=== PATIENT | male | born 1965 | race Hispanic/Latino ===

== ENCOUNTER 2020-04-11 11:51 | Emergency (ER) | payer OTHER ==
[~2020-04-11] VITALS: Ht 172.7 cm; Wt 98.4 kg
--- OUTSIDE RECORDS SUMMARY | 2020-04-11 11:56 | XMS REPORT | Summary of Care ---
Author Author [facility] Organization [facility] Address Unknown Phone Unavailable Encounter HQ Encntr_alias(FIN) [phone] Date(s): 07/20/18 - 07/21/18 [facility] [address] [place] [address]- [phone] Vital Signs No data available for this section Problem List Condition Effective Dates Status Health Status Informan t Anxiety(Confirmed) Active Arthritis(Confirmed) Active Diabetes(Confirmed) Active High blood Active pressure(Confirmed) Insomnia(Confirmed) Active Allergies, Adverse Reactions, Alerts No Known Medication Allergies Medications No data available for this section Results No data available for this section Immunizations No data available for this section Procedures No data available for this section Social History No data available for this section Assessment and Plan No data available for this section
--- OUTSIDE RECORDS SUMMARY | 2020-04-11 11:56 | XMS REPORT | Clinical Summary ---
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
--- OUTSIDE RECORDS SUMMARY | 2020-04-11 11:56 | XMS REPORT | Summary of Care ---
Author Author [facility] Organization [facility] Address Unknown Phone Unavailable Encounter HQ Hiltonr_anuel(FIN) [phone] Date(s): 07/21/18 - 09/04/18 [facility] [address] [place] [address]- [phone] Attending Physician: Krystal Garcia NP Referring Physician: Krystal Garcia NP Vital Signs No data available for this [...]
--- OUTSIDE RECORDS SUMMARY | 2020-04-11 11:56 | XMS REPORT | Summary of Care ---
Author Author [facility] Neurosurgery [facility] Organization [facility] Neurosurgery [facility] Address Unknown Phone Unavailable Encounter HQ Encntr_aliviviana(FIN) [phone] Date(s): 05/27/18 - 05/27/18 [facility] Neurosurgery [facility] [address], [address] [place], [place] [address] [phone] Attending Physician: Brian Blevins MD Referring Physician: Kay Hearn MD Vital Signs No data available for this [...]
--- OUTSIDE RECORDS SUMMARY | 2020-04-11 11:56 | XMS REPORT | Summary of Care ---
Author Author [facility] Neurosurgery [facility] Organization [facility] Address Unknown Phone Unavailable Encounter HQ Encntr_alias(FIN) [phone] Date(s): 07/15/18 - 07/16/18 [facility] Neurosurgery [facility] [address] [place] [address]- [phone] Vital Signs No data available for this [...]
--- OUTSIDE RECORDS SUMMARY | 2020-04-11 11:56 | XMS REPORT | Summary of Care ---
Author Author [facility]surgery [facility] Organization [facility] Address Unknown Phone Unavailable Encounter HQ Encntr_alias(FIN) [phone] Date(s): 07/22/18 - 07/23/18 [facility] Neurosurgery [facility] [address] [place] [address]- [phone] Vital Signs No data available for this [...]
--- OUTSIDE RECORDS SUMMARY | 2020-04-11 11:56 | XMS REPORT | Summary of Care ---
Author Author [facility] Neurosurgery [facility] Organization [facility] Neurosurgery [facility] Address Unknown Phone Unavailable Encounter HQ Hiltonr_anuel(FIN) [phone] Date(s): 04/30/18 - 05/01/18 [facility] Neurosurgery [facility] [address], [address] [place], [place] [address] [phone] Vital Signs No data available for this section Problem List No data available for this section Allergies, Adverse Reactions, Alerts No data available for this section Medications No data available for this section Results No data available for this section Immunizations No data available for this section Procedures No data available for this section Social History No data available for this section Assessment and Plan No data available for this section
--- OUTSIDE RECORDS SUMMARY | 2020-04-11 11:56 | XMS REPORT | Summary of Care ---
Author Author [facility] Neurosurgery [facility] Organization [facility] Neurosurgery [facility] Address Unknown Phone Unavailable Encounter HQ Encntr_anuel(FIN) [phone] Date(s): 07/13/18 - 07/14/18 [facility] Neurosurgery [facility] [address] [facility] [address], [address] [place], [place] [address] [phone] Vital Signs No data available for this [...]
--- OUTSIDE RECORDS SUMMARY | 2020-04-11 11:56 | XMS REPORT | Summary of Care ---
Author Author [facility] Neurosurgery [facility] Organization [facility] Neurosurgery [facility] Address Unknown Phone Unavailable Encounter HQ Encntr_alias(FIN) [phone] Date(s): 07/13/18 - 07/14/18 [facility] Neurosurgery [facility] [address] [place] [address]- [phone] Vital Signs No data available for this [...]
--- OUTSIDE RECORDS SUMMARY | 2020-04-11 11:56 | XMS REPORT | Summary of Care ---
Author Author [facility]surgery [facility] Organization [facility] Neuro[facility] Address Unknown Phone Unavailable Encounter HQ Hiltonr_anuel(FIN) [phone] Date(s): 05/25/18 - 05/26/18 [facility] Neurosurgery [facility] [address], [address] [place], [place] [address] [phone] Vital Signs No data available for this [...]
--- OUTSIDE RECORDS SUMMARY | 2020-04-11 11:56 | XMS REPORT | Summary of Care ---
Author Author [facility] Neurosurgery [facility] Organization [facility] Neurosurgery [facility] Address Unknown Phone Unavailable Encounter HQ Encntr_alias(FIN) [phone] Date(s): 07/22/18 - 07/23/18 [facility] Neurosurgery [facility] [address] [place] [address]- [phone] Vital Signs No data available for this [...]
--- OUTSIDE RECORDS SUMMARY | 2020-04-11 11:56 | XMS REPORT | Summary of Care ---
Author Author [facility] Neurosurgery [facility] Organization [facility] Neurosurgery [facility] Address Unknown Phone Unavailable Encounter HQ Encntr_alias(FIN) [phone] Date(s): 07/15/18 - 07/16/18 [facility] Neurosurgery [facility] [address] [place] [address]- [phone] Vital Signs No data available for this [...]
--- OUTSIDE RECORDS SUMMARY | 2020-04-11 11:56 | XMS REPORT | Summary of Care ---
Author Author [facility] Organization [facility] Address Unknown Phone Unavailable Encounter HQ Encntr_aliviviana(FIN) [phone] Date(s): 08/04/17 - 08/04/17 [facility] [address] [place] [address]- Discharge Disposition: Home or Self Care Attending Physician: Kendrick Cheung MD Vital Signs No data available for [...]
--- OUTSIDE RECORDS SUMMARY | 2020-04-11 11:56 | XMS REPORT | Summary of Care ---
Author Author [facility] Neurosurgery [facility] Organization [facility] Neurosurgery [facility] Address Unknown Phone Unavailable Encounter HQ Encntr_anuel(FIN) [phone] Date(s): 05/25/18 - 05/26/18 [facility] Neurosurgery [facility] [address], [address] [place], [place] [address] [phone] Vital Signs No data available for this [...]
--- OUTSIDE RECORDS SUMMARY | 2020-04-11 11:56 | XMS REPORT | Continuity of Care Document ---
Author Author [facility] [employer] Address Unknown Phone Unavailable Care Team Providers Care Child Life Assistant Name Role Phone [facility] Unavailable Un available Problems Problem Status Onset Date Classification Date Reported Comments Source XRAY Active 08/04/2017 [facility] Anxiety (finding) Active Problem 03/24/2019 [facility] Arthritis (disorder) Active Problem 03/24/2019 [facility] Diabetes mellitus (disorder) A ctive Problem [facility] Hypertensive disorder, systemic arterial (disorder) Active Problem 03/24/2019 [facility] Insomnia (disorder) Active Problem 03/24/2019 [facility] Medications Medication Details Route Status Patient Instructions Ordering Provider Order Date Source Trazodone Hydrochloride 50 MG Oral Tablet 50 mg = 1 tab, PO, Bedtime, # 30 tab, 1 Refill(s) Active 06/26/2018 [facility] Metformin hydrochloride 500 MG Oral Tablet 500 mg = 1 tab, PO, Daily, take with a meal, # 30 tab, 1 Refill(s) Active 06/26/2018 [facility] meloxicam 15 mg oral tablet 15 mg = 1 tab, PO, Daily, 0 Refill(s) Active 06/26/2018 [facility] lisinopril 30 mg oral tablet 3 0 mg = 1 tab, PO, Daily, # 30 tab, 0 Refill(s) Active 06/26/2018 [facility] Acetaminophen 325 MG / Hydrocodone Marci trate 7.5 MG Oral Tablet [[place] 7.5/325] 1 tab, PO, Q6H, 0 Refill(s) Active 06/26/2018 [facility] DULoxetine 30 mg oral delayed release capsule 60 mg = 2 cap, PO, Daily, # 60 cap, 0 Refill(s) Active 06/26/2018 [facility] Allergies, Adverse Reactions, Alerts Substance Category Reaction Severity Reaction type Status Date Reported Comments Source No Known Medication Allergies Assertion Drug aller gy [facility] Immunizations No Data Provided for This Section Results No Data Provided for This Section Pathology Reports No Data Provided for This Section Diagnostic Reports Report Value Date Source Knee 4+ views bilat DX Study: Bilateral knees, 4 views, with weightbearing Clinical Indication: -Chronic bilateral knee pain Comparison: None FINDINGS: Right knee: There is minimal narrowing of the medial compartment of the joint space without hypertrophic changes. The patellofemoral articulation is normal. No joint effusion is noted. Left knee: The joint space is maintained. No hypertrophic changes are noted. Patellofemoral articulation is normal. No joint effusion is noted. IMPRESSION: Minimal right osteoarthritis. SL: [facility] 08/04/2017 [facility] Spine lumbar 2 or 3 views DX S tudy: Lumbar spine, 3 views Clinical Indication: - M54.5 Low back pain; Comparison: None FINDINGS: AP and lateral images demonstrate normal vertebral alignment. No compression fracture is evident. There are small marginal osteophytes at all levels. There is slight narrowing L3-L4 and L5-S1 intervertebral disc spaces. Sacroiliac joints are not remarkable. IMPRESSION: Spondylosis as described. SL: [facility] 08/04/2017 [facility] Spine cervical 2 or 3 view DX Study: Cervical spine, 3 views Clinical Indication: -Chronic neck pain Comparison: None FINDINGS: AP, lateral and odontoid images demonstrate normal vertebral alignment. No fracture is evident. Intervertebral disc spaces are maintained. There are small marginal osteophytes at C6-C7. Prevertebral soft tissues are normal. IMPRESSION: Minimal spondylosis. [facility]04/2017 [facility] Consultation Notes No Data Provided for This Section Discharge Summaries No Data Provided for This Section History and Physicals No Data Provided for This Section Vital Signs No Data Provided for This Section Encounters Location Location Details Encounter Type Encounter Number Reason For Visit Attending Provider ADM Date DC Date Status Source [facility] Outpatient [id number] Kendrick Cheung 08/04/2017 08/05/2017 [facility] Phone Message [id number] 04/23/2018 04/25/2018 [facility] Phone Message [id number] 04/30/2018 05/02/2018 [facility] Phone Message [id number] 05/25/2018 05/27/2018 [facility] Outpatient [id number] BRIAN VILLAREALH 05/27/2018 Active [facility] [id number] Brian [facility] 05/27/2018 05/27/2018 [facility] [id number] BRIAN [facility] 06/23/2018 Active [facility] Ángel [facility] [id number] Brian Felicity 06/23/2018 06/24/2018 [facility] Phone Message [id number] 07/02/2018 07/04/2018 [facility] Phone Message [id number] 07/13/2018 07/15/2018 [facility] Phone Message [id number] 07/15/2018 07/17/2018 [facility] Phone Message [id number] 07/15/2018 07/17/2018 [facility] Phone Message [id number] 07/20/2018 07/22/[address] [facility] [address] [facility] PreRe [id number] Krystal Garcia 07/21/2018 09/04/2018 [facility] Phone Message [id number] 07/22/2018 07/24/2018 [facility] Phone Message [id number] 07/22/2018 07/24/2018 [facility] Procedures No Data Provided for This Section Assessment and Plan No Data Provided for This Section Plan of Care No Data Provided for This Section Social History Social History Date Source No data available for this section 09/04/2018 [facility] No data available for this section 07/24/2018 [facility] Family History No Data Provided for This Section Advance Directives No Data Provided for This Section Functional Status No Data Provided for This Section
--- OUTSIDE RECORDS SUMMARY | 2020-04-11 11:56 | XMS REPORT | Summary of Care ---
Author Author [facility] Organization [facility] Address Unknown Phone Unavailable Encounter HQ Xiomara(FIN) [phone] Date(s): 06/23/18 - 06/23/18 [facility] [address] [place] [address] [phone] Discharge Disposition: Home or Self Care Attending Physician: Brian Blevins MD Referring Physician: Kay Hearn MD Vital Signs No data available for this section Problem List Condition Effective Dates Status Health Status Informan t Anxiety(Confirmed) Active Arthritis(Confirmed) Active Diabetes(Confirmed) Active High blood Active pressure(Confirmed) Insomnia(Confirmed) Active Allergies, Adverse Reactions, Alerts No Known Medication Allergies Medications DULoxetine 30 mg oral delayed release capsule 60 mg = 2 cap, PO, Daily, # 60 cap, 0 Refill(s) Start Date: 06/26/18 Status: Ordered lisinopril 30 mg oral tablet 30 mg = 1 tab, PO, Daily, # 30 tab, 0 Refill(s) Start Date: 06/26/18 Status: Ordered meloxicam 15 mg oral tablet 15 mg = 1 tab, PO, Daily, 0 Refill(s) Start Date: 06/26/18 Status: Ordered metFORMIN 500 mg oral tablet 500 mg = 1 tab, PO, Daily, take with a meal, # 30 tab, 1 Refill(s) Start Date: 06/26/18 Status: Ordered [place] 7.5/325 oral tablet 1 tab, PO, Q6H, 0 Refill(s) Start Date: 06/26/18 Status: Ordered trazodone 50 mg oral tablet 50 mg = 1 tab, PO, Bedtime, # 30 tab, 1 Refill(s) Start Date: 06/26/18 Status: Ordered Results No data available for this section Immunizations No data available for this section Procedures No data available for this section Social History No data available for this section Assessment and Plan No data available for this section
[2020-04-11] MEDS ORDERED: PAXIL20 MG PO (12:25)
[2020-04-11] MEDS ORDERED: GABAPENTIN300 MG PO (12:25)
[2020-04-11] MEDS ORDERED: METFORMIN HCL500 M2 PO (12:25)
[2020-04-11] MEDS ORDERED: ATORVASTATIN CA40 MG PO (12:26)
[2020-04-11] MEDS ORDERED: LISINOPRIL10 MG PO (12:26)
[2020-04-11] MEDS ORDERED: SODIUM CHLORIDE 0.9% 1000ML 1,000 ML IV STA (12:36)
[2020-04-11] MEDS ORDERED: ONDANSETRON HCL INJ 2MG/ML 2ML 2 MG/ML VIAL IV NR (12:45)
[2020-04-11] MEDS ORDERED: KETOROLAC TROMETHAMINE 30 MG/ML VIAL IV NR (12:45)
[2020-04-11] MEDS ORDERED: PANTOPRAZOLE 40 MG 10ML VIAL IV NR (12:45)
--- NOTE | 2020-04-11 12:52 | NUR ---
PATIENT TO ROOM 9
[2020-04-11] MEDS ORDERED: ONDANSETRON HCL INJ 2MG/ML 2ML 2 MG/ML VIAL ONE (12:53)
[2020-04-11] MEDS ORDERED: PANTOPRAZOLE 40 MG 10ML VIAL ONE (12:53)
[2020-04-11] MEDS ORDERED: DIATRIZOATE MEGL/DIATRIZOA SOD 30 ML BTL PO ONE (12:54)
[2020-04-11 13:14] LABS: BASOPHILS % 0.3 % (0.0-1.0); EOSINOPHILS # (AUTO) 0.1 (0.0-0.4); EOSINOPHILS % 1.8 % (0.0-6.0); HEMATOCRIT 41.1 % (38.2-49.6); HEMOGLOBIN 13.7 g/dL (14.0-18.0); LYMPHOCYTES # (AUTO) 1.9 (1.0-3.2); LYMPHOCYTES % 24.5 % (18.0-39.1); MEAN CORPUSCULAR HEMOGLOBIN 28.1 pg (28-32); MEAN CORPUSCULAR HGB CONC 33.3 g/dL (31-35); MEAN CORPUSCULAR VOLUME 84.2 fL (81-99); MONOCYTES # (AUTO) 0.5 (0.2-0.8); NEUTROPHILS % 65.9 % (38.7-80.0); PLATELET COUNT 293 x10e3/uL (140-360); RED BLOOD COUNT 4.88 x10e6/uL (4.3-5.7); RED CELL DISTRIBUTION WIDTH 12.8 % (11.7-14.4)
[2020-04-11 13:27] LABS: BILIRUBIN,URINE NEGATIVE (NEGATIVE); CLARITY,URINE CLEAR (CLEAR); COLOR,URINE YELLOW (YELLOW); KETONES,URINE NEGATIVE (NEGATIVE); LEUKOCYTE ESTERASE ,URINE NEGATIVE (NEGATIVE); NITRITE,URINE NEGATIVE (NEGATIVE); PROTEIN,URINE DIPSTICK NEGATIVE (NEGATIVE); URINE UROBILINOGEN 0.2 mg/dL (0.2 - 1)
[2020-04-11 13:30] LABS: PARTIAL THROMBOPLASTIN TIME 34.3 seconds (23.8-35.5)
[2020-04-11 13:35] LABS: INR 0.85; PROTHROMBIN TIME 12.1 seconds (11.9-14.5)
[2020-04-11 13:36] LABS: ALANINE AMINOTRANSFERASE 59 IU/L (0-55); ALBUMIN/GLOBULIN RATIO 1.3 (0.8-2.0); ALKALINE PHOSPHATASE 130 IU/L (40-150); ANION GAP 13.7 mmol/L (8-16); BLOOD UREA NITROGEN 11 mg/dL (7-26); BUN/CREATININE RATIO 13 (6-25); CALCIUM 9.5 mg/dL (8.4-10.2); CARBON DIOXIDE 23 mmol/L (22-29); CHLORIDE 106 mmol/L (98-107); CREATINE KINASE 75 IU/L (30-200); CREATININE, SERUM 0.88 mg/dL (0.72-1.25); EST GLOMERULAR FILTRATION RATE > 60 ML/MIN (60-); GLUCOSE 156 mg/dL (74-118); LIPASE 20 U/L (8-78); POTASSIUM 3.7 mmol/L (3.5-5.1); SODIUM 139 mmol/L (136-145)
[2020-04-11 13:38] LABS: BACTERIA,URINE FEW /HPF; EPITHELIAL CELLS,URINE RARE /LPF; MUCUS,URINE MANY (RARE); RBC,URINE 0-5 /HPF (0-5); WBC,URINE (MAN) 0-5 /HPF (0-5)
--- NOTE | 2020-04-11 13:40 | Emergency Department Note ---
History of Present Illnes History of Present Illness Chief Complaint: Abdominal Complaints History of Present Illness This is a 54 year old male .abd pain Chief Complaint Comment HERE FOR CHRONIC ABDOMINAL PAIN, BEING CARED FOR BY DOCTOR SELENA, HAS UPPER GI SERIES SCHEDULED FOR NEXT WEEK, TAKING MEDICATIONS PRESCRIBED BY DR. WALTERS AND STATES THAT IT MAKES HIM SICK, GIVES HIM STOMACH PAIN AND CHEST PAIN. STATES HAS VOMITING BUT HAS NOT VOMITED SINCE LAST WEEK. DENIES DIARRHEA, FEVER. STATES DR WALTERS ADVISED HIM THAT IF HE DID NOT FEEL ANY BETTER THAT HE NEEDED TO COME TO ER. Historian: Patient Arrival Mode: Car Onset (how long ago): day(s) (several days ) Location: epigastric and left side abd pain Quality: mild Radiation: Reports abdomen Severity: mild Onset quality: gradual Duration (how long): day(s) (several days ) Timing of current episode: constant Progression: unchanged Context: Denies recent illness, Denies recent surgery, Denies recent immobilization, Denies recent travel, Denies trauma/injury, Denies new medications, Denies hx of DVT/PE, Denies non-compliance w/ medications, Denies other Relieving factors: none Exacerbating factors: none Treatments prior to arrival: none Past Medical/Family History Physician Review I have reviewed the patient's past medical and family history. Any updates have been documented here. Past Medical History Recent Fever: No Clinical Suspicion of Infectio: No New/Unexplained Change in Ment: No Past Medical History: Hypertension, Diabetes, Anxiety, Depression, Hyperlipedemia Past Surgical History: None Social History Smoking Cessation: Never Smoker Counseling Performed: No Alcohol Use: None Any Illegal Drug Use: No TB Exposure/Symptoms: No Physically hurt or threatened: No Family History Family history of heart diseas: Yes Other Last Flu: NONE Last Pneumovax: NONE Review of Systems Review of Systems Constitutional: Reports no symptoms EENTM: Reports no symptoms Cardiovascular: Reports no symptoms Respiratory: Reports no symptoms Gastrointestinal: Reports abdominal pain Genitourinary: Reports no symptoms Musculoskeletal: Reports no symptoms Integumentary: Reports no symptoms Neurological: Reports no symptoms Psychological: Reports no symptoms Endocrine: Reports no symptoms Hematological/Lymphatic: Reports no symptoms Review of other systems All other systems reviewed and negative. Physical Exam Related Data Allergies: Coded Allergies: No Known Allergies (Unverified , 04/10/11) Triage Vital Signs Vital Signs Date Time Temp Pulse Resp B/P (MAP) Pulse Ox O2 Delivery O2 Flow Rate FiO2 04/11/20 12:20 98.5 73 16 166/98 98 Physical Exam CONSTITUTIONAL Constitutional: Reports well-developed, Reports well-nourished HENT HENT: Reports normocephalic, Reports atraumatic, Reports oropharynx clear/moist, Reports nose normal HENT L/R: Reports left ext ear normal, Reports right ext ear normal EYES Eyes: Reports PERRL, Reports conjunctivae normal NECK Neck: Reports ROM normal PULMONARY Pulmonary: Reports effort normal, Reports breath sounds normal CARDIOVASCULAR Cardiovascular: Reports regular rhythm, Reports heart sounds normal, Reports capillary refill normal, Reports normal rate GASTROINTESTINAL Abdominal: Reports soft; Denies nontender; Reports bowel sounds normal, Reports tender (minimal tenderness epigastric / left side abd ) GENITOURINARY Genitourinary: Reports exam deferred SKIN Skin: Reports warm, Reports dry MUSCULOSKELETAL Musculoskeletal: Reports ROM normal NEUROLOGICAL Neurological: Reports alert, Reports oriented x 3, Reports no gross motor or sensory deficits PSYCHOLOGICAL Psychological: Reports mood/affect normal, Reports judgement normal Results Laboratory Result Diagram: 04/11/20 1242 Laboratory Laboratory Tests Test 04/11/20 12:42 White Blood Count 7.66 x10e3/uL (4.8-10.8) Red Blood Count 4.88 x10e6/uL (4.3-5.7) Hemoglobin 13.7 g/dL (14.0-18.0) Hematocrit 41.1 % (38.2-49.6) Mean Corpuscular Volume 84.2 fL (81-99) Mean Corpuscular Hemoglobin 28.1 pg (28-32) Mean Corpuscular Hemoglobin Concent 33.3 g/dL (31-35) Red Cell Distribution Width 12.8 % (11.7-14.4) Platelet Count 293 x10e3/uL (140-360) Neutrophils (%) (Auto) 65.9 % (38.7-80.0) Lymphocytes (%) (Auto) 24.5 % (18.0-39.1) Monocytes (%) (Auto) 7.0 % (4.4-11.3) Eosinophils (%) (Auto) 1.8 % (0.0-6.0) Basophils (%) (Auto) 0.3 % (0.0-1.0) Neutrophils # (Auto) 5.0 (2.1-6.9) Lymphocytes # (Auto) 1.9 (1.0-3.2) Monocytes # (Auto) 0.5 (0.2-0.8) Eosinophils # (Auto) 0.1 (0.0-0.4) Basophils # (Auto) 0.0 (0.0-0.1) Absolute Immature Granulocyte (auto 0.04 x10e3/uL (0-0.1) Prothrombin Time 12.1 seconds (11.9-14.5) Prothromb Time International Ratio 0.85 Activated Partial Thromboplast Time 34.3 seconds (23.8-35.5) Urine Color Yellow (YELLOW) Urine Clarity Clear (CLEAR) Urine pH 5.5 (5 - 7) Urine Specific [place] 1.030 (1.010-1.025) Urine Protein Negative (NEGATIVE) Urine Glucose (UA) 2+ (NEGATIVE) Urine Ketones Negative (NEGATIVE) Urine Blood Trace (NEGATIVE) Urine Nitrite Negative (NEGATIVE) Urine Bilirubin Negative (NEGATIVE) Urine Urobilinogen 0.2 mg/dL (0.2 - 1) Urine Leukocyte Esterase Negative (NEGATIVE) Urine RBC 0-5 /HPF (0-5) Urine WBC 0-5 /HPF (0-5) Urine Epithelial Cells Rare /LPF (NONE) Urine Bacteria Few /HPF (NONE) Urine Mucus Many (RARE) Sodium Level 139 mmol/L (136-145) Potassium Level 3.7 mmol/L (3.5-5.1) Chloride Level 106 mmol/L (98-107) Carbon Dioxide Level 23 mmol/L (22-29) Anion Gap 13.7 mmol/L (8-16) Blood Urea Nitrogen 11 mg/dL (7-26) Creatinine 0.88 mg/dL (0.72-1.25) Estimat Glomerular Filtration Rate > 60 ML/MIN (60-) BUN/Creatinine Ratio 13 (6-25) Glucose Level 156 mg/dL (74-118) Calcium Level 9.5 mg/dL (8.4-10.2) Total Bilirubin 0.5 mg/dL (0.2-1.2) Aspartate Amino Transf (AST/SGOT) 59 IU/L (5-34) Alanine Aminotransferase (ALT/SGPT) 59 IU/L (0-55) Alkaline Phosphatase 130 IU/L (40-150) Creatine Kinase 75 IU/L (30-200) Creatine Kinase MB 0.90 ng/mL (0-5.0) Troponin I 0.020 ng/mL (0-0.300) Total Protein 7.2 g/dL (6.5-8.1) Albumin 4.0 g/dL (3.5-5.0) Globulin 3.2 g/dL (2.3-3.5) Albumin/Globulin Ratio 1.3 (0.8-2.0) Lipase 20 U/L (8-78) Laboratory Tests Test 04/11/20 12:42 White Blood Count 7.66 x10e3/uL (4.8-10.8) Red Blood Count 4.88 x10e6/uL (4.3-5.7) Hemoglobin 13.7 g/dL (14.0-18.0) Hematocrit 41.1 % (38.2-49.6) Mean Corpuscular Volume 84.2 fL (81-99) Mean Corpuscular Hemoglobin 28.1 pg (28-32) Mean Corpuscular Hemoglobin Concent 33.3 g/dL (31-35) Red Cell Distribution Width 12.8 % (11.7-14.4) Platelet Count 293 x10e3/uL (140-360) Neutrophils (%) (Auto) 65.9 % (38.7-80.0) Lymphocytes (%) (Auto) 24.5 % (18.0-39.1) Monocytes (%) (Auto) 7.0 % (4.4-11.3) Eosinophils (%) (Auto) 1.8 % (0.0-6.0) Basophils (%) (Auto) 0.3 % (0.0-1.0) Neutrophils # (Auto) 5.0 (2.1-6.9) Lymphocytes # (Auto) 1.9 (1.0-3.2) Monocytes # (Auto) 0.5 (0.2-0.8) Eosinophils # (Auto) 0.1 (0.0-0.4) Basophils # (Auto) 0.0 (0.0-0.1) Absolute Immature Granulocyte (auto 0.04 x10e3/uL (0-0.1) Prothrombin Time 12.1 seconds (11.9-14.5) Prothromb Time International Ratio 0.85 Activated Partial Thromboplast Time 34.3 seconds (23.8-35.5) Urine Color Yellow (YELLOW) Urine Clarity Clear (CLEAR) Urine pH 5.5 (5 - 7) Urine Specific [place] 1.030 (1.010-1.025) Urine Protein Negative (NEGATIVE) Urine Glucose (UA) 2+ (NEGATIVE) Urine Ketones Negative (NEGATIVE) Urine Blood Trace (NEGATIVE) Urine Nitrite Negative (NEGATIVE) Urine Bilirubin Negative (NEGATIVE) Urine Urobilinogen 0.2 mg/dL (0.2 - 1) Urine Leukocyte Esterase Negative (NEGATIVE) Laboratory Tests Test 04/11/20 12:42 White Blood Count 7.66 x10e3/uL (4.8-10.8) Red Blood Count 4.88 x10e6/uL (4.3-5.7) Hemoglobin 13.7 g/dL (14.0-18.0) Hematocrit 41.1 % (38.2-49.6) Mean Corpuscular Volume 84.2 fL (81-99) Mean Corpuscular Hemoglobin 28.1 pg (28-32) Mean Corpuscular Hemoglobin Concent 33.3 g/dL (31-35) Red Cell Distribution Width 12.8 % (11.7-14.4) Platelet Count 293 x10e3/uL (140-360) Neutrophils (%) (Auto) 65.9 % (38.7-80.0) Lymphocytes (%) (Auto) 24.5 % (18.0-39.1) Monocytes (%) (Auto) 7.0 % (4.4-11.3) Eosinophils (%) (Auto) 1.8 % (0.0-6.0) Basophils (%) (Auto) 0.3 % (0.0-1.0) Neutrophils # (Auto) 5.0 (2.1-6.9) Lymphocytes # (Auto) 1.9 (1.0-3.2) Monocytes # (Auto) 0.5 (0.2-0.8) Eosinophils # (Auto) 0.1 (0.0-0.4) Basophils # (Auto) 0.0 (0.0-0.1) Absolute Immature Granulocyte (auto 0.04 x10e3/uL (0-0.1) Activated Partial Thromboplast Time 34.3 seconds (23.8-35.5) Urine Color Yellow (YELLOW) Urine Clarity Clear (CLEAR) Urine pH 5.5 (5 - 7) Urine Specific [place] 1.030 (1.010-1.025) Urine Protein Negative (NEGATIVE) Urine Glucose (UA) 2+ (NEGATIVE) Urine Ketones Negative (NEGATIVE) Urine Blood Trace (NEGATIVE) Urine Nitrite Negative (NEGATIVE) Urine Bilirubin Negative (NEGATIVE) Urine Urobilinogen 0.2 mg/dL (0.2 - 1) Urine Leukocyte Esterase Negative (NEGATIVE) Lab results reviewed: Yes Imaging Impressions Procedure: [id number] DX/CHEST SINGLE (PORTABLE) Exam Date: 04/11/20 Exam Time: 1440 REPORT STATUS: Signed Chest, 1 view, 04/11/2020. History: Chest pain. Comparison: None available. Findings: The cardiomediastinal silhouette and pulmonary vasculature are within normal limits for a portable exam. There is no focal consolidation or pleural effusion. There are no acute osseous or soft tissue abnormalities. Impression: No acute cardiopulmonary abnormality. Signed by: Kavon Pepe on 04/11/2020 3:06 PM Dictated By: KAVON PEPE MD [id number] Transcribed By: KAREN on 04/11/20 1506 COPY TO: JEN BAUTISTA MD~ IMPRESSION: No acute intra-abdominal or pelvic CT abnormalities. Hepatic steatosis. Atherosclerotic vascular disease with suspected moderate stenosis of the distal right external iliac artery/proximal right common femoral artery. Correlate for symptoms of right lower extremity claudication. Signed by: Dr. Dina Calhoun M.D. on 04/11/2020 3:13 PM Dictated By: DINA CALHOUN MD 1513 Transcribed By: KAREN on 04/11/20 1513 COPY TO: JEN BAUTISTA MD~ Procedures 12 Lead ECG Interpretation ECG Interpretation : Dominatrix: Interpreted by ED physician Date: Apr 11, 2020 Time: 16:51 Prior ECG tracings: reviewed Rhythm: sinus rhythm Rate: normal BPM: 71 QRS axis: normal Assessment & Plan Medical Decision Making MDM This is a 54 year old male c/o chronic abd pain for several days taking meds given by gi doc w/o relief D/D ACS / SBO / GASTRITIS / GASTRIC ULCER / Reassessment Reassessment Discussed lab rad results plan of care and f/u instructions 1. follow up with your doctor / GI doctor in 1-2 days without fail 2. return to ed as needed 3. bland diet 4. increase oral fluids 5. Bentyl Assessment & Plan Final Impression: (1) Abdominal pain Depart Disposition: HOME, SELF-CARE Last Vital Signs Date Time Temp Pulse Resp B/P (MAP) Pulse Ox O2 Delivery O2 Flow Rate FiO2 04/11/20 13:02 68 18 169/95 100 04/11/20 12:20 98.5 Home Meds Reported Medications Lisinopril (LISINOPRIL) 10 Mg Tablet, 10 MG PO DAILY, #30 TAB 04/11/20 Atorvastatin Calcium (ATORVASTATIN CALCIUM) 40 Mg Tablet, 40 MG PO HS, #30 TAB 04/11/20 Paroxetine Hcl (PAXIL) 20 Mg Tablet, 20 MG PO DAILY, TAB 04/11/20 Gabapentin (GABAPENTIN) 300 Mg Capsule, 600 MG PO BID, #60 CAP 04/11/20 Metformin Hcl (METFORMIN HCL ER) 500 Mg Tab.er.24, 500 MG PO BID, #60 TAB 04/11/20 Medications in the ED Pantoprazole Sodium 40 mg ONCE IV Last administered on 04/11/20at 13:04; Admin Dose 40 MG; Start 04/11/20 at 12:45; Stop 04/11/20 at 13:59 Ondansetron HCl 4 mg ONCE IV Last administered on 04/11/20at 13:04; Admin Dose 4 MG; Start 04/11/20 at 12:45; Stop 04/11/20 at 13:59 Ketorolac Tromethamine 30 mg ONCE IV Last administered on 04/11/20at 13:04; Admin Dose 30 MG; Start 04/11/20 at 12:45; Stop 04/11/20 at 13:59 Sodium Chloride 1,000 ml @ 0 mls/hr Q0M STAT IV Last administered on 04/11/20at 13:04; Admin Dose 1,000 MLS/HR; Start 04/11/20 at 12:36; Stop 04/11/20 at 12:39; Status DC Ondansetron HCl 4 mg STK-MED ONCE .ROUTE ; Start 04/11/20 at 12:53; Stop 04/11/20 at 12:47; Status DC Pantoprazole Sodium 40 mg STK-MED ONCE .ROUTE ; Start 04/11/20 at 12:53; Stop 04/11/20 at 12:48; Status DC Diatrizoate Meglum/ Diatrizoate Sod 30 ml STK-MED ONCE PO ; Start 04/11/20 at 12:54; Stop 04/11/20 at 12:48; Status DC JEN BAUTISTA MD Apr 11, 2020 13:40
[2020-04-11] MEDS ORDERED: SODIUM CHLORIDE 0.9% 50ML 50 ML ONE (14:30)
[2020-04-11] MEDS ORDERED: IOPAMIDOL 370 MG/ML 200 ML INFUS..BTL INJ ONE (14:30)
--- NOTE | 2020-04-11 15:10 | Diagnostic Imaging Report ---
Chest, 1 view, 04/11/2020. History: Chest pain. Comparison: None available. Findings: The cardiomediastinal silhouette and pulmonary vasculature are within normal limits for a portable exam. There is no focal consolidation or pleural effusion. There are no acute osseous or soft tissue abnormalities. Impression: No acute cardiopulmonary abnormality. Signed by: Patrick Pepe on 04/11/2020 3:06 PM
[2020-04-11] MEDS ORDERED: DICYCLOMINE HCL 20 MG/2 ML VIAL IM ONE (15:15)
--- NOTE | 2020-04-11 15:17 | Diagnostic Imaging Report ---
EXAMINATION: CT of the abdomen and pelvis with contrast. TECHNIQUE: Spiral CT images of the abdomen and pelvis were performed from the lung bases to the lesser trochanters after the intravenous administration of 100 cc of Isovue 370. Oral Gastrografin was also administered. Coronal and sagittal reformatted images were obtained. COMPARISON: None. CLINICAL HISTORY:Abdominal pain, worse on left side DISCUSSION: ABDOMEN/PELVIS: LOWER THORAX:Lung bases are unremarkable. No pleural effusion. Paraesophageal herniation of upper abdominal fat into the lower thorax. HEPATOBILIARY: Hepatic parenchyma is diffusely hypoattenuating compatible with steatosis. No focal hepatic lesion or intrahepatic biliary ductal dilatation. The gallbladder is unremarkable. SPLEEN: No splenomegaly or focal splenic lesion. PANCREAS: No focal masses or ductal dilatation. ADRENALS: No adrenal nodules. KIDNEYS/URETERS: Subcentimeter hypoattenuating lesion in the upper pole of the left kidney is too small to further characterize but likely to represent a small cyst. No hydronephrosis or calculi. PELVIC ORGANS/BLADDER: Urinary bladder is unremarkable. Coarse prostatic calcifications. PERITONEUM/RETROPERITONEUM: No ascites or pneumoperitoneum. LYMPH NODES: No pelvic sidewall, retroperitoneal, or mesenteric lymphadenopathy. VESSELS: Abdominal aorta, major branch vessels, and iliac arterial systems are patent. Atherosclerotic calcification with suspected at least moderate stenosis of the distal right external iliac and proximal right common femoral artery. Portal vein, splenic vein, and central superior mesenteric vein are patent. GI TRACT: The large bowel shows no evidence of distention or wall thickening. The appendix is not definitively identified. No right lower quadrant inflammation. The stomach is collapsed with prominent rugal folds. No small bowel dilatation to suggest obstruction. BONES AND SOFT TISSUE: No osseous destructive lesion or focal soft tissue abnormality IMPRESSION: No acute intra-abdominal or pelvic CT abnormalities. Hepatic steatosis. Atherosclerotic vascular disease with suspected moderate stenosis of the distal right external iliac artery/proximal right common femoral artery. Correlate for symptoms of right lower extremity claudication. Signed by: Dr. Ezequiel Morgan M.D. on 04/11/2020 3:13 PM
[2020-04-11] MEDS ORDERED: BELLADONNA ALK/PHENOBARBITAL 5 ML UDC PO ONE (15:30)
[2020-04-11] MEDS ORDERED: MAGNESIUM/ALUMINUM/SIMETHICONE 30 ML UDC PO ONE (15:30)
[2020-04-11] MEDS ORDERED: LIDOCAINE VISC 2% SOLN 15 ML UDC PO ONE (15:30)
== END 2020-04-11 17:18 | disposition home or self-care (01) ==
LOC: ER 11:51
DX: R10.13 Epigastric pain (principal); R07.89 Other chest pain; I10 Essential (primary) hypertension; E11.9 Type 2 diabetes mellitus without complications; K76.0 Fatty (change of) liver, not elsewhere classified; E78.5 Hyperlipidemia, unspecified; F41.9 Anxiety disorder, unspecified
CPT/HCPCS: 36415; 71045; 74177; 80053; 81001; 82550; 82553; 83690; 84484; 85025; 85610; 85730; 87086; 93005; 99284; C9113; J0500; J1885; J2405; J7030; Q9967

== ENCOUNTER → 2020-05-16 | Day surgery (SDC) | payer MEDICARE, OTHER ==
[2020-05-11 09:56] LABS: ANION GAP 12.8 mmol/L (8-16); BLOOD UREA NITROGEN 10 mg/dL (7-26); BUN/CREATININE RATIO 11 (6-25); CARBON DIOXIDE 25 mmol/L (22-29); CHLORIDE 104 mmol/L (98-107); CREATININE, SERUM 0.95 mg/dL (0.72-1.25); EST GLOMERULAR FILTRATION RATE > 60 ML/MIN (60-); GLUCOSE 171 mg/dL (74-118); POTASSIUM 3.8 mmol/L (3.5-5.1); SODIUM 138 mmol/L (136-145)
[~2020-05-16] MED LIST: ATORVASTATIN CA40 MG PO; BUPIVACAINE HCL 0.5% INJ 30 ML VIAL INJ ONE; CEFAZOLIN SOD 1 GM/NS 50ML 100 ML IV ONE; DICYCLOMINE HCL20 MG PO; ETOMIDATE 2 MG/ML 10 ML INJ IV ONE; FENTANYL CITRATE/PF 100MCG/2 ML INJ ONE; GABAPENTIN300 MG PO; LIDOCAINE HCL 2% LOCAL INJ 5 ML SDV VIAL INJ ONE; LISINOPRIL10 MG PO; METFORMIN HCL500 M2 PO; OMEPRAZOLE40 MG PO; ONDANSETRON HCL INJ 2MG/ML 2ML 2 MG/ML VIAL ONE; PAXIL20 MG PO; PROPOFOL IV EMULSION 10 MG/ML 20 ML VIAL ONE; SEVOFLURANE INHAL SOLN 250 ML PEN BTL ONE; ULTRAM50 MG PO
[2020-05-16 15:15] VITALS: BP 138/91
--- NOTE | 2020-05-18 16:40 | Operative Report ---
DATE OF PROCEDURE: 05/16/2020 SURGEON: Nilson Marlow MD PREOPERATIVE DIAGNOSES: Right knee medial meniscus tear, right knee degenerative joint disease. POSTOPERATIVE DIAGNOSES: Right knee medial meniscus tear, right knee degenerative joint disease. OPERATIONS AND PROCEDURES PERFORMED: The patient underwent right knee examination under anesthesia, right knee arthroscopy, right knee partial medial meniscectomy, right knee chondroplasty of the patella, trochlea, the medial femoral condyle, the medial tibial plateau, and lateral tibial plateau. 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 ANESTHESIA: General endotracheal intubation anesthesia. IV FLUIDS: Per the anesthesia record. BRIEF DESCRIPTION OF THE PATIENT'S OPERATIVE PROCEDURE: Mr. Buck was taken to the operating room and placed in supine position on the operating table. Following induction of general anesthesia as well as endotracheal intubation, the patient's right lower extremity was examined under anesthesia. He was found to have a mild effusion within the knee joint, but otherwise ligamentously stable knee. The patient's lower extremity was prepped and draped in standard surgical fashion. A two-port technique used to provide this patient arthroscopic approach to the knee joint. Examination of suprapatellar pouch, medial lateral gutters found no evidence of loose bodies. There was evidence of chondromalacia of the patella and trochlear surfaces. The scope was advanced in the medial compartment. Examination of medial compartment demonstrated a tear of the posterior horn and root of the medial meniscus. There was also chondromalacia of the articulating surfaces. A combination of biting forceps and motorized shaver were used to resect the torn portion of meniscus. Chondroplasties of the medial femoral condyle and medial tibial plateau performed at this time. Scope was advanced to the intercondylar notch. The anterior cruciate ligament was identified and found to be intact. Scope was advanced to the lateral compartment and there was chondromalacia of the lateral tibial plateau. A chondroplasty of this surface was performed. The scope was then placed in suprapatellar pouch and chondroplasties of the patella and trochlea were performed. The knee was then deflated with sterile normal saline. The portal sites were closed using 4-0 nylon suture. The portal sites as well as the knee itself were injected with 0.5% Marcaine with epinephrine. Sterile dressings were applied. The patient was awakened and taken to Postanesthesia Care Unit in stable condition. MD BROOK Curry/RAMSES /[id number]
== END | disposition home or self-care (01) ==
LOC: OR 11:10
PROVIDERS: ATTEND Specialist
DX: S83.221A Peripheral tear of medial meniscus, current injury, right knee, initial encounter (principal); M17.11 Unilateral primary osteoarthritis, right knee; M22.41 Chondromalacia patellae, right knee; S39.012A Strain of muscle, fascia and tendon of lower back, initial encounter; M54.31 Sciatica, right side; E11.9 Type 2 diabetes mellitus without complications; H93.19 Tinnitus, unspecified ear; I10 Essential (primary) hypertension; E78.5 Hyperlipidemia, unspecified; W11.XXXA Fall on and from ladder, initial encounter; Y93.89 Activity, other specified; Y99.8 Other external cause status; Z01.810 Encounter for preprocedural cardiovascular examination; Z01.812 Encounter for preprocedural laboratory examination; Z11.59 Encounter for screening for other viral diseases; Z79.84 Long term (current) use of oral hypoglycemic drugs; Z68.34 Body mass index [BMI] 34.0-34.9, adult
CPT/HCPCS: 36415; 80048; 82948; 93005; J0690; J2001; J2405; J3010; U0002

== ENCOUNTER → 2020-05-18 | Day surgery (SDC) | payer MEDICARE, OTHER ==
[~2020-05-18] MED LIST changes: -BUPIVACAINE HCL 0.5% INJ 30 ML VIAL INJ ONE; -CEFAZOLIN SOD 1 GM/NS 50ML 100 ML IV ONE; -ETOMIDATE 2 MG/ML 10 ML INJ IV ONE; -FENTANYL CITRATE/PF 100MCG/2 ML INJ ONE; -LIDOCAINE HCL 2% LOCAL INJ 5 ML SDV VIAL INJ ONE; -ONDANSETRON HCL INJ 2MG/ML 2ML 2 MG/ML VIAL ONE; -SEVOFLURANE INHAL SOLN 250 ML PEN BTL ONE
[2020-05-18 08:00] VITALS: BP 115/84
== END | disposition home or self-care (01) ==
LOC: OR 05:37
PROVIDERS: ATTEND Internal Medicine Gastroenterology
DX: K29.50 Unspecified chronic gastritis without bleeding (principal); D12.2 Benign neoplasm of ascending colon; D12.3 Benign neoplasm of transverse colon; K21.9 Gastro-esophageal reflux disease without esophagitis; K31.89 Other diseases of stomach and duodenum; K64.8 Other hemorrhoids; Z71.3 Dietary counseling and surveillance; E66.9 Obesity, unspecified; E11.9 Type 2 diabetes mellitus without complications; I10 Essential (primary) hypertension; Z79.84 Long term (current) use of oral hypoglycemic drugs; Z68.33 Body mass index [BMI] 33.0-33.9, adult
CPT/HCPCS: 36415; 43239; 45385; 82948; J2704; 45378

== ENCOUNTER 2020-08-11 12:28 | Inpatient (IN) | payer MEDICARE, OTHER ==
[~2020-08-11] VITALS: Ht 172.7 cm; Wt 98.0 kg
[~2020-08-11 12:28] MED LIST changes: -PROPOFOL IV EMULSION 10 MG/ML 20 ML VIAL ONE
[2020-08-11] MEDS ORDERED: PANTOPRAZOLE 40 MG 10ML VIAL IV ONE (12:33)
[2020-08-11] MEDS ORDERED: ASPIRIN 81 MG CHEW TAB PO ONE (12:45)
[2020-08-11 13:01] LABS: BASOPHILS % 0.3 % (0.0-1.0); EOSINOPHILS # (AUTO) 0.2 (0.0-0.4); EOSINOPHILS % 2.2 % (0.0-6.0); HEMATOCRIT 38.6 % (38.2-49.6); HEMOGLOBIN 12.6 g/dL (14.0-18.0); LYMPHOCYTES # (AUTO) 2.1 (1.0-3.2); LYMPHOCYTES % 23.8 % (18.0-39.1); MEAN CORPUSCULAR HEMOGLOBIN 28.3 pg (28-32); MEAN CORPUSCULAR HGB CONC 32.6 g/dL (31-35); MEAN CORPUSCULAR VOLUME 86.5 fL (81-99); MONOCYTES # (AUTO) 0.6 (0.2-0.8); MONOCYTES % 7.1 % (4.4-11.3); NEUTROPHILS # (AUTO) 5.8 (2.1-6.9); NEUTROPHILS % 66.1 % (38.7-80.0); PLATELET COUNT 296 x10e3/uL (140-360); RED BLOOD COUNT 4.46 x10e6/uL (4.3-5.7); RED CELL DISTRIBUTION WIDTH 12.4 % (11.7-14.4)
[2020-08-11 13:14] LABS: INR 0.96; PROTHROMBIN TIME 13.3 seconds (11.9-14.5)
[2020-08-11 13:15] LABS: PARTIAL THROMBOPLASTIN TIME 33.2 seconds (23.8-35.5)
[2020-08-11 13:17] LABS: ALANINE AMINOTRANSFERASE 28 IU/L (0-55); ALBUMIN 3.8 g/dL (3.5-5.0); ALBUMIN/GLOBULIN RATIO 1.1 (0.8-2.0); ALKALINE PHOSPHATASE 125 IU/L (40-150); ANION GAP 15.2 mmol/L (8-16); BLOOD UREA NITROGEN 9 mg/dL (7-26); BUN/CREATININE RATIO 10 (6-25); CALCIUM 8.1 mg/dL (8.4-10.2); CARBON DIOXIDE 24 mmol/L (22-29); CHLORIDE 104 mmol/L (98-107); CREATINE KINASE 97 IU/L (30-200); CREATININE, SERUM 0.89 mg/dL (0.72-1.25); EST GLOMERULAR FILTRATION RATE > 60 ML/MIN (60-); GLUCOSE 128 mg/dL (74-118); MAGNESIUM 1.6 MG/DL (1.3-2.1); POTASSIUM 4.2 mmol/L (3.5-5.1); SODIUM 139 mmol/L (136-145)
--- OUTSIDE RECORDS SUMMARY | 2020-08-11 13:30 | XMS REPORT | Clinical Summary ---
Author Author [facility] Address Unknown Phone Unavailable Care Team Providers [facility] Name Role Phone Yuan Thorpe MD, Jayden PCP Allergies Not on File Medications Not on file Active Problems Not on file Social History Date Tobacco Use Types Packs/Day Years Used Never Assessed Sex Assigned at Date Recorded Not on file Last Filed Vital Signs Not on file Plan of Treatment Health Maintenance Due Date Last Done Comments DIABETIC RETINAL EYE EXAM 1964 DIABETIC FOOT EXAM 1974 URINE MICROALBUMIN 1974 COLONOSCOPY SCREENING 2014 SHINGLES VACCINES (#1) 2014 INFLUENZA VACCINE 06/03/2020 Results Not on fileafter 08/11/2019 Insurance Type Payer Benefit Subscriber ID Effective Phone Address Plan / Dates Group Workers Comp WORK[employer] [place] [id number] 2011- [employer] Present (Home) [place] [address] Advance Directives For more information, please contact: [phone] 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
--- OUTSIDE RECORDS SUMMARY | 2020-08-11 13:30 | XMS REPORT | Continuity of Care Document ---
Author Author [facility] t Organization [facility] Address [address] [place] [address] Phone Unavailable Care Team Providers Care Senior Government Program Analyst Name Role Phone MD NAYA SPICER PCP RIVER TALBOT M.D. Attphys Unavailable DONALDO BAKER M.D. Attphys UnavailDREW Hercules Attphys Unavailable Jhony BAUTISTA Attphys Unavailable Isabel Garcia Attphys Savannah Blevins Attphys Kory Cheung Attphys Payers Payer Name Policy Type Policy Number Effective Date Expiration Date Ferdinand Morrell Plus [id number] [facility] Problems Condition Name Condition Details Condition Category Status Onset Date Resolution Date Last Treatment Date Treating Clinician Comments Source XRAY XRAY Active 08/04/2017 [facility] Diagnosis Active 2017-08-04 11:20:00 2017-08-27 13:56:00 [facility] Major depressive disorder, single episode, in partial remission Major depressive disorder, single episode, in partial remission Disease Active 2016-05-29 00:00:00 [facility] Anxiety disorder Anxiety disorder Disease Active 2016-05-29 00:00:00 [facility] Chest pain Chest pain Disease Active 2015-09-02 00:00:00 [facility] Chronic back pain Chronic back pain Disease Active 2014-10-12 00:00:00 [facility] Chronic knee pain Chronic knee pain Disease Active 2014-10-12 00:00:00 [facility] Prediabetes Prediabetes Disease Active 2014-10-12 00:00:00 [facility] Mixed hyperlipidemia Mixed hyperlipidemia Disease Active 00:00:00 [facility] HTN (hypertension) with goal to be determined HTN (hyp ertension) with goal to be determined Disease Active 2014-10-12 00:00:00 [facility] History of arthritis History of arthritis Problem Resolved [facility] History of depression History of depression Problem Resolved [facility] History of hypercholesterolemia History of hypercholesterolemia Problem Resolved [facility] History of high blood pressure History of high blood pressure Probl em Resolved [facility] History of Migraine headache History of Migraine headache Problem Re solved [facility] PAOD (peripheral arterial occlusive disease) PAOD (per ipheral arterial occlusive disease) Problem Active [facility] Obstructive sleep apnea, adult Obstructive sleep apnea, adult Problem Active [facility] Nasal valve collapse Nasal valve collapse Problem Active [facility] Sensorineural hearing loss (SNHL) of both ears Sensori neural hearing loss (SNHL) of both ears Problem Active [facility] Abdominal pain Problem Active [facility] Anxiety (finding) Anxi ety (finding) [facility] Problem Active 2019-03-24 12:04:5 1 Caleb Neal Arthritis (disorder) Arth ritis (disorder) Active [facility] Problem Active 12:04:51 Caleb Neal Diabetes mellitus (disorder) D iabetes mellitus (disorder) Active Problem 03/24/2019 [facility] Problem Ac tive 2019-03-24 12:04:51 Caleb bean Insomnia (disorder) Inso mnia (disorder) Active Problem 03/24/2019 [facility] Problem Active 12:04:51 Caleb Neal Allergies, Adverse Reactions, Alerts Allergy Name Allergy Type Status Severity Reaction(s) Onset Date Inacti ve Date Treating Clinician Comments Source No Known Medication Allergies No Known Medication Allergies Active Caleb Neal Family History Family Member Diagnosis Comments Start Date Stop Date Source Father Family history of malignant neoplasm [facility] Natural father Arthritis [place] [facility] Natural [facility] Natural father Cancer [facility] Natural mother Hypertension [facility] kilo Paternal uncle Diabetes [facility] Social History Social Habit Start Date Stop Date Quantity Comments Source Sex Assigned At [facility] Alcohol intake 2019-04-07 00:00:00 2019-04-07 00:00:00 Current drinker of alcohol (finding) [facility] Social [facility] 2018-07-24 04:59:59 2018-07-24 04:59:59 [facility] History SDOH Food Worry 2017-04-17 00:00:00 2017-04-17 00:00:00 1 [facility] Food Scarcity 2017-04-17 00:00:00 2017-04-17 00:00:00 1 [facility] Alcohol Comment 2014-09-20 00:00:00 2014-09-20 00:00:00 occasionally [facility] Smoking Status Start Date Stop Date Source Former smoker 2019-04-07 00:00:00 2019-04-07 00:00:00 [facility] kilo Medications Ordered Medication Name Filled Medication Name Start Date Stop Da te Current Medication? Ordering Clinician Indication Dosage Frequency Signature (SIG) Comments Components Source Trazodone Hydrochloride 50 MG Oral Tablet 2018-06-26 17:13:00 Yes 50 mg = 1 tab, PO, Bedtime, # 30 tab, 1 Refill(s) Caleb Neal Metformin hydrochloride 500 MG Oral Tablet 2018-06-26 17:13:00 Yes 500 mg = 1 tab, PO, Daily, take with a meal, # 30 tab, 1 Refill(s) Caleb Neal meloxicam 15 mg oral tablet 2018-06-26 17:13:00 Yes 15 mg = 1 tab, PO, Daily, 0 Refill(s) Caleb Neal lisinopril 30 mg oral tablet 2018-06-26 17:13:00 Yes 30 mg = 1 tab, PO, Daily, # 30 tab, 0 Refill(s) Kennedy Neal Acetaminophen 325 MG / Hydrocodone Marci trate 7.5 MG Oral Tablet [Jessup 7.5/325] 2018-06-26 17:13:00 Yes 1 tab, PO, Q 6H, 0 Refill(s) Caleb Neal DULoxetine 30 mg oral delayed release capsule 2018-06-26 17:13:0 0 Yes 60 mg = 2 cap, PO, Daily, # 60 cap, 0 Refill(s) [facility] HYDROcodone-acetaminophen (NORCO) 5-325 mg tablet 2017-05-26 00:00:00 Yes Lumbar radiculopathy 1{tbl} Take 1 tablet by mo [facility] 2 times daily as needed for Pain. [facility] naproxen (NAPROSYN) 500 mg tablet 2017-04-17 09:21:49 Yes 500mg Take 500 mg by mouth 2 times daily (with meals). [facility] metFORMIN (GLUCOPHAGE XR) 500 mg ER extended release tablet 2017-04-17 00:00:00 Yes Prediabetes 500mg QD Take 1 t ablet by mouth daily (with breakfast). [facility] busPIRone (BUSPAR) 10 mg tablet 2017-03-25 00:00:00 Yes Anxiety disorder, unspecified type 20mg Take 2 tablets by mouth 3 times daily. [facility] citalopram (CELEXA) 20 mg tablet 2017-03-25 00:00:00 Yes Major depressive disorder, single episode, in partial remission 40mg QD Take 2 tablets by mouth daily. [facility] lamoTRIgine (LAMICTAL) 25 mg tablet 2017-03-25 00:00:00 Yes Major depressive disorder, single episode, in partial remission Take 1 tablet by mouth daily for 2 weeks, then take 2 tablets daily.. [facility] zolpidem (AMBIEN) 10 mg Tab 2017-03-25 00:00:00 Yes Insomnia, unspecified 10mg Take 1 tablet by mouth at bedtime nightly. [facility] cyclobenzaprine (FLEXERIL) 10 mg tablet 2017-03-12 00:00:00 Yes Lumbar radiculopathy 10mg Take 1 tablet by jessee nightly at bedtime as needed for Muscle Spasms. [facility] ciclesonide (ZETONNA) 37 mcg/actuation nasal HFA inhaler 2017-02-10 00:00:00 Yes 1{spray} QD Use 1 [place] in each nostril daily.Substituted for Nasonex per P&T. [facility] lisinopril (PRINIVIL) 10 mg tablet 2017-01-08 00:00:00 Yes Essential hypertension 10mg QD Take 1 tablet by mouth daily. [facility] atorvastatin (LIPITOR) 40 mg tablet 2017-01-08 00:00:00 Yes Mixed hyperlipidemia 40mg Take 1 tablet by mouth at bedtime nightly. [facility] loratadine (CLARITIN) 10 mg tablet 2016-08-21 00:00:00 Yes Seasonal allergic rhinitis due to pollen 10mg QD Take 1 tablet by mouth suze mcih. [facility] gabapentin (NEURONTIN) 100 mg capsule 2016-08-07 00:00:00 Yes Anxiety disorder, unspecified type 100mg Take 1 capsul e by mouth 3 times daily as needed for Other (anxiety). [facility] ibuprofen (MOTRIN) 800 mg tablet 2016-07-04 00:00:00 Yes Chronic midline low back pain without sciatica 800mg Take 1 ta blet by mouth every 8 hours as needed for Pain. [facility] potassium chloride (KLOR-CON M20) 20 mEq extended release ta blet 2016-03-22 00:00:00 Yes Muscle spasms of both lower extremities 20meq QD Take 1 tablet by mouth daily. [facility] Fluticasone Propionate 50 MCG/ACT Nasal Suspension Flu ticasone Propionate 50 MCG/ACT Nasal Suspension Yes [facility] Citalopram Hydrobromide 10 MG Oral Tablet Citalopram H ydrobromide 10 MG Oral Tablet Yes [facility] Gabapentin 300 MG Oral Capsule Gabapentin 300 MG Oral Capsule Yes [facility] metFORMIN HCl TABS metFORMIN HCl TABS Yes [facility] Omeprazole 40 MG Oral Capsule Delayed Release Omeprazo le 40 MG Oral Capsule Delayed Release [facility] traZODone HCl TABS traZODone HCl TABS Yes [facility] traMADol HCl TABS traMADol HCl TABS Yes [facility] Lisinopril TABS Lisinopril TABS Yes [facility] Atorvastatin Calcium TABS Atorvastatin Calcium TABS Yes [facility] Atorvastatin Calcium Atorvastatin Calcium Yes 40 Bedtime [facility] Gabapentin Gabapentin Yes 600 Twice A Day [facility] Lisinopril Lisinopril Yes 10 Daily [facility] Metformin Hcl (Metformin Hcl Er) 500 Mg TAB.ER.24 Metf ormin Hcl (Metformin Hcl Er) 500 Mg TAB.ER.24 Yes 500 Twice A Day [facility] Paroxetine Hcl (Paxil) 20 Mg TABLET Paroxetine Hcl (Paxil) 20 Mg TABL ET Yes 20 Daily [facility] Immunizations Ordered Immunization Name Filled Immunization Name Date Status Comments Source Tdap Tetanus, diphtheria, acellular pertussis Vaccine 2017-01-08 00:00:00 Completed [facility] Influenza Vaccine 2017-01-08 00:00:00 Completed [facility] Influenza Vaccine 2016-01-03 00:00:00 Completed [facility] Vital Signs Vital Name Observation Time Observation Value Comments Source Body temperature 2020-08-02 13:05:00 97.7 [degF] Method: Temporal [facility] Weight 2020-04-11 12:20:00 217 [lb_av] [facility] BMI (Body Mass Index) 2020-04-11 12:20:00 33.0 kg/m2 [facility] Procedures Procedure Date / Time Performed Performing Clinician [facility] Sleep Lab - Sleep Study Home Sleep Test 2020-08-02 00:00:00 [facility] Computed tomography of abdomen and pelvis with contrast 00:00:00 [facility] History of Knee Surgery [facility] History of Hand Surgery [facility] History of Colonoscopy [facility] Plan of Care Planned Activity Planned Date Details Comments Source Future Scheduled Test 2020-06-03 00:00:00 INFLUENZA VACCINE [code = INFLUENZA VACCINE] [facility] Scheduled Test 2020-05-16 00:00:00 Screening for kelsey gnant neoplasm of colon (procedure) [code = 509150902] [facility] Scheduled Test 2014 00:00:00 COLONOSCOPY SCREEN ING [code = COLONOSCOPY SCREENING] [facility] Scheduled Test 2014 00:00:00 SHINGLES VACCINES (#1) [code = SHINGLES VACCINES (#1)] [facility] Scheduled Test 1974 00:00:00 DIABETIC FOOT EXAM [code = DIABETIC FOOT EXAM] [facility] Scheduled Test 1974 00:00:00 URINE MICROALBUMIN [code = URINE MICROALBUMIN] [facility] Scheduled Test 1964 00:00:00 DIABETIC RETINAL E YE EXAM [code = DIABETIC RETINAL EYE EXAM] [facility] Appointment 2020-09-06 10:30:00 Tanika FULTON. OLIVIA, [facility] Future Appointment 2020-08-18 13:30:00 DREW AMADO [facility] Instructions Abdominal Pain - Adult Ferdinand bolivar [facility] Encounters Start Date/Time End Date/Time Encounter Type Admission Type [facility] Care Department Encounter ID Source 2020-08-04 10:15:00 2020-08-04 10:15:00 Appointment; RIVER TALBOT M.D. MARTIN, GORDON, M.D. [facility] Thoracic Surgery [facility] [id number] [facility] 2020-08-02 13:30:00 2020-08-02 13:30:00 Appointment; DONALDO DUVALL M.D. GOMEZ-RIVERA, FERNANDO, M.D. [facility] Tigrett rhinolaryngology [facility] [id number] [facility] 2020-08-02 13:00:00 2020-08-02 13:00:00 Appointment; IILA AMADO NANCY [facility] Otorhinolaryngology [facility] [id number] [facility] 2020-04-11 11:51:00 2020-04-11 17:18:00 Departed Emergency Room 1 JEN BAUTISTA [facility] [id number] [facility] 2018-07-21 11:46:46 2018-09-04 16:00:00 Outpatient Krystal Garcia [facility] [id number] 2018-07-22 11:23:00 2018-07-23 23:59:59 Outpatient MHMIS BRANDO MHMISCHER [id number] 2018-07-22 11:22:00 2018-07-23 23:59:59 Outpatient MHMIS BRANDO MHMISCHER [id number] 2018-07-20 13:27:00 2018-07-21 23:59:59 Outpatient MHMIS BRANDO MHMISCHER [id number] 2018-07-15 08:43:00 2018-07-16 23:59:59 Outpatient MHMIS BRANDO MHMISCHER [id number] 2018-07-15 08:42:00 2018-07-16 23:59:59 Outpatient MHMIS BRANDO MHMISCHER [id number] 2018-07-13 13:58:00 2018-07-14 23:59:59 Outpatient MHMIS BRANDO MHMISCHER [id number] 2018-07-13 13:58:00 2018-07-14 23:59:59 Outpatient MHMIS BRANDO MHMISCHER [id number] 2018-07-02 15:35:00 2018-07-03 23:59:59 Outpatient MHMIS BRANDO MHMISCHER [id number] 2018-06-23 12:30:00 2018-06-23 23:59:59 Outpatient Brian Blevins [facility] [id number] 2018-05-27 13:00:00 2018-05-27 13:00:00 Outpatient Brian Blevins [facility] [id number] 2018-05-25 11:53:00 2018-05-26 23:59:59 Outpatient MHMIS BRANDO MHMISCHER [id number] 2018-05-25 11:53:00 2018-05-26 23:59:59 Outpatient MHMIS BRANDO MHMISCHER [id number] 2018-04-30 11:08:00 2018-05-01 23:59:59 Outpatient MHMIS BRANDO MHMISCHER [id number] 2018-04-23 16:47:00 2018-04-24 23:59:59 Outpatient MHMIS BRANDO MHMISCHER [id number] 2017-08-13 00:00:00 2017-08-13 00:00:[address] [facility] [id number] [facility] 2017-08-04 11:19:00 2017-08-04 23:59:00 Outpatient Kendrick Cheung Kory Hammond MHSE MHSE [id number] 2017-07-23 00:00:00 2017-07-23 00:00:[address] [facility] [id number] [facility] 2017-06-19 00:00:00 2017-06-19 00:00:[address] [facility] [id number] [facility] 2017-06-19 00:00:00 2017-06-19 00:00:[address] [facility] [id number] [facility] 2017-06-11 00:00:00 2017-06-11 00:00:[address] [facility] [id number] [facility] 2017-06-03 00:00:00 2017-06-03 00:00:[address] [facility] [id number] [facility] 2017-05-26 14:02:23 2017-05-26 14:02:[address] [facility] [id number] [facility] 2017-05-26 00:00:00 2017-05-26 00:00:[address] [facility] [id number] [facility] 2017-05-19 00:00:00 2017-05-19 00:00:[address] [facility] [id number] [facility] 2017-05-14 00:00:00 2017-05-14 00:00:[address] [facility] [id number] [facility] 2017-05-01 08:56:24 2017-05-01 08:56:[address] [facility] [id number] [facility] 2017-04-18 08:13:23 2017-04-18 08:13:[address] [facility] [id number] [facility] 2017-04-17 11:24:22 2017-04-17 11:24:[address] [facility] [id number] [facility] 2017-04-17 10:30:06 2017-04-17 10:30:[address] [facility] [id number] [facility] 2017-04-17 08:54:15 2017-04-17 08:54:[address] [facility] [id number] [facility] 2017-03-25 09:47:50 2017-03-25 09:47:[address] [facility] [id number] [facility] 2017-03-25 00:00:00 2017-03-25 00:00:[address] [facility] [id number] [facility] 2017-03-12 10:32:22 2017-03-12 10:32:[address] [facility] [id number] [facility] 2017-02-10 14:48:55 2017-02-10 14:48:[address] [facility] [id number] [facility] 2017-02-10 10:52:08 2017-02-10 10:52:[address] [facility] [id number] [facility] 2017-02-04 08:36:27 2017-02-04 08:36:[address] [facility] [id number] [facility] 2017-01-08 09:05:43 2017-01-08 09:05:[address] [facility] [id number] [facility] 2016-12-12 11:03:43 2016-12-12 11:03:[address] [facility] [id number] [facility] 2016-11-07 11:06:36 2016-11-07 11:06:[address] [facility] [id number] [facility] 2016-10-01 10:03:12 2016-10-01 10:03:[address] [facility] [id number] [facility] 2016-09-21 07:43:39 2016-09-21 07:43:[address] [facility] [id number] [facility] 2016-09-20 08:30:29 2016-09-20 08:30:[address] [facility] [id number] [facility] 2016-08-21 09:32:31 2016-08-21 09:32:[address] [facility] [id number] [facility] 2016-08-21 08:11:18 2016-08-21 08:11:[address] [facility] [id number] [facility] 2016-08-07 09:36:17 2016-08-07 09:36:[address] [facility] [id number] [facility] 2016-08-07 09:09:24 2016-08-07 09:09:[address] [facility] [id number] [facility] 2016-07-22 07:57:53 2016-07-22 07:57:[address] [facility] [id number] [facility] 2016-07-04 13:28:47 2016-07-04 13:28:[address] [facility] [id number] [facility] 2016-07-04 12:34:11 2016-07-04 12:34:11 Emergency [facility] [id number] [facility] 2016-06-27 13:50:35 2016-06-27 13:50:[address] [facility] [id number] [facility] 2016-06-24 10:03:04 2016-06-24 10:03:[address] [facility] [id number] [facility] 2016-06-24 08:20:56 2016-06-24 08:20:[address] [facility] [id number] [facility] 2016-06-12 08:48:10 2016-06-12 08:48:[address] [facility] [id number] [facility] 2016-05-29 07:10:50 2016-05-29 07:10:[address] [facility] [id number] [facility] 2016-05-24 09:10:07 2016-05-24 09:10:[address] [facility] [id number] [facility] 2016-05-24 08:07:57 2016-05-24 08:07:[address] [facility] [id number] [facility] 2016-05-13 20:13:53 2016-05-13 20:13:[address] [facility] [id number] [facility] 2016-05-03 08:11:54 2016-05-03 08:11:[address] [facility] [id number] [facility] 2016-04-24 09:19:34 2016-04-24 09:19:[address] [facility] [id number] [facility] 2016-04-24 08:00:01 2016-04-24 08:00:[address] [facility] [id number] [facility] 2016-04-16 07:30:07 2016-04-16 07:30:[address] [facility] [id number] [facility] 2016-03-30 14:19:07 2016-03-30 14:19:[address] [facility] [id number] [facility] 2016-03-22 08:58:36 2016-03-22 08:58:[address] [facility] [id number] [facility] 2016-03-22 08:26:51 2016-03-22 08:26:[address] [facility] [id number] [facility] 2016-03-11 09:13:10 2016-03-11 09:13:[address] [facility] [id number] [facility] 2016-02-22 08:11:54 2016-02-22 08:11:[address] [facility] [id number] [facility] 2016-02-05 07:21:50 2016-02-05 07:21:[address] [facility] [id number] [facility] 2016-01-22 09:04:31 2016-01-22 09:04:[address] [facility] [id number] [facility] 2016-01-22 08:01:29 2016-01-22 08:01:[address] [facility] [id number] [facility] 2016-01-03 10:41:17 2016-01-03 10:41:[address] [facility] [id number] [facility] 2015-12-25 09:01:29 2015-12-25 09:01:[address] [facility] [id number] [facility] 2015-12-25 08:06:58 2015-12-25 08:06:[address] [facility] [id number] [facility] 2015-12-12 08:49:22 2015-12-12 08:49:[address] [facility] [id number] [facility] 2015-12-04 07:08:05 2015-12-04 07:08:[address] [facility] [id number] [facility] 2015-11-27 08:51:57 2015-11-27 08:51:[address] [facility] [id number] [facility] 2015-11-27 08:00:27 2015-11-27 08:00:[address] [facility] [id number] [facility] 2015-10-30 09:22:53 2015-10-30 09:22:[address] [facility] [id number] [facility] 2015-10-30 08:02:10 2015-10-30 08:02:[address] [facility] [id number] [facility] 2015-10-20 06:51:44 2015-10-20 06:51:[address] [facility] [id number] [facility] 2015-10-02 08:05:23 2015-10-02 08:05:[address] [facility] [id number] [facility] 2015-10-02 07:10:10 2015-10-02 07:10:[address] [facility] [id number] [facility] 2015-09-04 13:50:07 2015-09-04 13:50:[address] [facility] [id number] [facility] 2015-09-02 19:05:45 2015-09-02 19:05:[address] [facility] [id number] [facility] 2015-09-02 17:49:42 2015-09-02 17:49:42 Emergency [facility] [id number] [facility] Results Test Description Test Time Test Comments Results Result Comments Source CHEST SINGLE (PORTABLE) 2020-04-11 15:06:00 [place] [address] Patient Name: DINA RUSSO MR #: [id number] : 1965 Age/Sex: 54/M Req #: [id number] Adm Physician: Ordered by: JEN BAUTISTA MD Report #: [id number] Location: ER Room/Bed: Procedure: [id number] DX/CHEST SINGLE (PORTABLE) Exam Date: 04/11/20 Exam Time: 1440 REPORT STATUS: Signed Chest, 1 view, 04/11/2020. History: Chest pain. Comparison: None available. Findings: The cardiomediastinal silhouette and pulmonary vasculature are within normal limits for a portable exam. There is no focal consolidation or pleural effusion. There are no acute osseous or soft tissue abnormalities. Impression: No acute cardiopulmonary abnormality. Signed by: Patrick Pepe on 04/11/2020 3:06 PM Dictated By: PATRICK PEPE MD [id number] Transcribed By: KARNE on 04/11/20 1506 COPY TO: JEN BAUTISTA MD CT ABDOMEN/PELVIS W 2020-04-11 15:00:00 [place] [address] Patient Name: DINA RUSSO MR #: [id number] : 1965 Age/Sex: 54/M Req #: [id number] Adm Physician: Ordered by: JEN BAUTISTA MD Report #: [id number] Location: ER Room/Bed: Procedure: [id number] CT/CT ABDOMEN/PELVIS W Exam Date: 04/11/20 Exam Time: 1444 REPORT STATUS: Signed EXAMINATION: CT of the abdomen and pelvis with contrast. TECHNIQUE: Spiral CT images of the abdomen and pelvis were performed from the lung bases to the lesser trochanters after the intravenous administration of 100 cc of Isovue 370. Oral Gastrografin was also administered. Coronal and sagittal reformatted images were obtained. COMPARISON: None. CLINICAL HISTORY:Abdominal pain, worse on left side DISCUSSION: ABDOMEN/PELVIS: LOWER THORAX:Lung bases are unremarkable. No pleural effusion. Paraesophageal herniation of upper abdominal fat into the lower thorax. HEPATOBILIARY: Hepatic parenchyma is diffusely hypoattenuating compatible with steatosis. No focal hepatic lesion or intrahepatic biliary ductal dilatation. The gallbladder is unremarkable. SPLEEN: No splenomegaly or focal splenic lesion. PANCREAS: No focal masses or ductal dilatation. ADRENALS: No adrenal nodules. KIDNEYS/URETERS: Subcentimeter hypoattenuating lesion in the upper pole of the left kidney is too small to further characterize but likely to represent a small cyst. No hydronephrosis or calculi. PELVIC ORGANS/BLADDER: Urinary bladder is unremarkable. Coarse prostatic calcifications. PERITONEUM/RETROPERITONEUM: No ascites or pneumoperitoneum. LYMPH NODES: No pelvic sidewall, retroperitoneal, or mesenteric lymphadenopathy. VESSELS: Abdominal aorta, major branch vessels, and iliac arterial systems are patent. Atherosclerotic calcification with suspected at least moderate stenosis of the distal right external iliac and proximal right common femoral artery. Portal vein, splenic vein, and central superior mesenteric vein are patent. GI TRACT: The large bowel shows no evidence of distention or wall thickening. The appendix is not definitively identified. No right lower quadrant inflammation. The stomach is collapsed with prominent rugal folds. No small bowel dilatation to suggest obstruction. BONES AND SOFT TISSUE: No osseous destructive lesion or focal soft tissue abnormality IMPRESSION: No acute intra-abdominal or pelvic CT abnormalities. Hepatic steatosis. Atherosclerotic vascular disease with suspected moderate stenosis of the distal right external iliac artery/proximal right common femoral artery. Correlate for symptoms of right lower extremity claudication. Signed by: Dr. Dina Morgan M.D. on 04/11/2020 3:13 PM Dictated By: DINA MORGAN MD 0926 Transcribed By: KAREN on 04/11/20 8439 COPY TO: JEN BAUTISTA MD Blood leukocytes automated count (number/volume) 2020-04-11 12:42:00 Test Item White Blood Count (test code = 6690-2) 7.66 4.8-10.8 [facility] automated count (number/volume)2020-04-11 12:42:00* Test Item Value Reference Range Interpretation Comments Red Blood Count (test code = 789-8) 4.88 4.3-5.7 [facility] hemoglobin measurement (moles/volume)2020-04-11 12:42:00* Test Item Value Reference Range Interpretation Comments Hemoglobin (test code = 84691-5) 13.7 14.0-18.0 [facility]manAutomated blood hematocrit (volume fraction)2020-04-11 12:42:00* Test Item Value Reference Range Interpretation Comments Hematocrit (test code = 4544-3) 41.1 38.2-49.6 [facility]manAutomated erythrocyte mean corpuscular naxmas1981-38-32 12:42:00* Test Item Value Reference Range Interpretation Comments Mean Corpuscular Volume (test code = 787-2) 84.2 81-99 [facility]manAutom[facility] erythrocyte mean corpuscular hemoglobin (mass per erythrocyte)2020-04-11 12:42:00* Test Item Value Reference Range Interpretation Comments Mean Corpuscular Hemoglobin (test code = 785-6) 28.1 28-32 [facility]manAutomated erythrocyte mean corpuscular hemoglobin concentration measurement (mass/volume)2020-04-11 12:42:00* Test Item Value Reference Range Interpretation Comments Mean Corpuscular Hemoglobin Concent (test code = 786-4) 33.3 31-35 [facility]manRDW BswKg-Lms3102-69-09 12:42:00* Test Item Value Reference Range Interpretation Comments Red Cell Distribution Width (test code = 58841-7) 12.8 11.7 -14.4 [facility]manAutomated blood platelet count (count/volume)2020-04-11 12:42:00* Test Item Value Reference Range Interpretation Comments Platelet Count (test code = 777-3) 293 140-360 [facility]manAutat[facility] health [facility] hospitaled blood segmented neutrophil count as percentage of total mgyiklxmtv3045-78-76 12:42:00* Test Item Value Reference Range Interpretation Comments Neutrophils (%) (Auto) (test code = 39324-7) 65.9 38.7-80.0 [facility]manAutomated blood lymphocyte count as percentage ot total yojdgstzdc1252-83-87 12:42:00* Test Item Value Reference Range Interpretation Comments Lymphocytes (%) (Auto) (test code = 736-9) 24.5 18.0-39.1 [facility]manAutomated blood monocyte count as percentage of total pkyimvkuvw6109-21-21 12:42:00* Test Item Value Reference Range Interpretation Comments Monocytes (%) (Auto) (test code = 5905-5) 7.0 4.4-11.3 [facility]manAutomated blood eosinophil count as percentage of total ilqlqekjii5165-36-26 12:42:00* Test Item Value Reference Range Interpretation Comments Eosinophils (%) (Auto) (test code = 713-8) 1.8 0.0-6.0 [facility]manAutomated blood basophil count as percentage of total jlggeeneoq0232-75-59 12:42:00* Test Item Value Reference Range Interpretation Comments Basophils (%) (Auto) (test code = 706-2) 0.3 0.0-1.0 [facility]manFluoroscopic procedure less than one hour ayatvthh0244-04-34 12:42:00* Test Item Value Reference Range Interpretation Comments IM GRANULOCYTES % (test code = IM GRANULOCYTES %) 0.5 0.0- 1.0 [facility]manAutomated blood neutrophil count 2020-04-11 12:42:00* Test Item Value Reference Range Interpretation Comments Neutrophils # (Auto) (test code = 751-8) 5.0 2.1-6.9 [facility]man[facility] lymphocytes count (number/volume) 2020-04-11 12:42:00* Test Item Value Reference Range Interpretation Comments Lymphocytes # (Auto) (test code = 40352-8) 1.9 1.0-3.2 [facility]manBlood monocytes automated count (number/volume)2020-04-11 12:42:00* Test Item Value Reference Range Interpretation Comments Monocytes # (Auto) (test code = 742-7) 0.5 0.2-0.8 [facility]manAutomated blood eosinophil count 2020-04-11 12:42:00* Test Item Value Reference Range Interpretation Comments Eosinophils # (Auto) (test code = 711-2) 0.1 0.0-0.4 [facility]manAutomated blood basophil count (count/volume)2020-04-11 12:42:00* Test Item Value Reference Range Interpretation Comments Basophils # (Auto) (test code = 704-7) 0.0 0.0-0.1 [facility]manFluoroscopic procedure less than one hour quxzygjg6110-00-47 12:42:00* Test Item Value Reference Range Interpretation Comments Absolute Immature Granulocyte (auto (milagro t code = Absolute Immature Granulocyte (auto) 0.04 0-0.1 [facility]manProthrombin time (PT) in platelet poor plasma by coagulation wqlxn0842-23-80 12:42:00* Test Item Value Reference Range Interpretation Comments Prothrombin Time (test code = 5902-2) 12.1 11.9-14.5 [facility]manINR in Platelet poor plasma by Coagulation akrui2343-38-50 12:42:00* Test Item Value Reference Range Interpretation Comments Prothromb Time International Ratio (test code = 6301-6) 0.85 Oral Anticoagulant Therapy INR Values:1. Low Intensity Therapy 1.5 - 2.02 . Moderate Intensity Therapy 2.0 - 3.03. High Intensity Therapy(1) 2.5 - 3. 54. High Intensity Therapy(2) 3.0 - 4.05. Panic Value INR > 5.0 [facility]aufmanActivated partial thromboplastin time (aPTT) in platelet poor plasma by coagulation folpf6137-66-66 12:42:00* Test Item Value Reference Range Interpretation Comments Activated Partial Thromboplast Time (test code = 23075-3) 34.3 23.8-35.5 [facility]manUrine color qwsvbccscckzq9568-00-29 12:42:00* Test Item Value Reference Range Interpretation Comments Urine Color (test code = 5778-6) YELLOW YELLOW [facility]manUrine ukqfuch7876-17-66 12:42:00* Test Item Value Reference Range Interpretation Comments Urine Clarity (test code = 01251-7) CLEAR CLEAR [facility] Urine by Test strip 2020-04-11 12:42:00* Test Item Value Reference Range Interpretation Comments Urine Specific [place] (test code = 5811-5) 1.030 1.010-1.02 5 [facility]manU[facility] pH measurement by automated test xfkgf2559-17-75 12:42:00* Test Item Value Reference Range Interpretation Comments Urine pH (test code = 20608-0) 5.5 5-7 [facility]manUrine leukocyte esterase detection by nlpycwes0936-34-45 12:42:00* Test Item Value Reference Range Interpretation Comments Urine Leukocyte Esterase (test code = 5799-2) NEGATIVE NEGATIVE [facility]manUrine nitrite gookixhli4271-60-06 12:42:00* Test Item Value Reference Range Interpretation Comments Urine Nitrite (test code = 92056-8) NEGATIVE NEGATIVE [facility]manUrine protein measurement by test strip (mass/volume)2020-04-11 12:42:00* Test Item Value Reference Range Interpretation Comments Urine Protein (test code = 5804-0) NEGATIVE NEGATIVE [facility]manU[facility] glucose nwzmhboxr3190-53-40 12:42:00* Test Item Value Reference Range Interpretation Comments Urine Glucose (UA) (test code = 2349-9) 2+ NEGATIVE [facility]manUrine ketones detection by automated test stbsq5880-33-53 12:42:00* Test Item Value Reference Range Interpretation Comments Urine Ketones (test code = 18211-6) NEGATIVE NEGATIVE [facility]manUrine urobilinogen measurement by test strip (mass/volume)2020-04-11 12:42:00* Test Item Value Reference Range Interpretation Comments Urine Urobilinogen (test code = 32445-0) 0.2 0.2-1 [facility]manUrine total bilirubin measurement (mass/volume)2020-04-11 12:42:00* Test Item Value Reference Range Interpretation Comments Urine Bilirubin (test code = 1978-6) NEGATIVE NEGATIVE [facility]manUrine erythrocytes slczztvcg8953-14-77 12:42:00* Test Item Value Reference Range Interpretation Comments Urine Blood (test code = 95322-0) TRACE NEGATIVE [facility]manAutomated urine sediment leukocyte count by microscopy (number/high power field)2020-04-11 12:42:00* Test Item Value Reference Range Interpretation Comments Urine WBC (test code = 5821-4) 0-5 0-5 [facility]manErythrocytes detection in urine sediment by light psozeihqyd7092-36-70 12:42:00* Test Item Value Reference Range Interpretation Comments Urine RBC (test code = 24772-4) 0-5 0-5 [facility]manBacteria detection in urine sediment by light pjcsgalhnt4600-73-89 12:42:00* Test Item Value Reference Range Interpretation Comments Urine Bacteria (test code = 53053-4) FEW NONE [facility]manEpithelial cells detection in urine sediment by light ctkovqvkug7771-41-70 12:42:00* Test Item Value Reference Range Interpretation Comments Urine Epithelial Cells (test code = 44600-3) RARE NONE [facility]manMucus detection in urine sediment by light zvmzdgnscj5015-13-77 12:42:00* Test Item Value Reference Range Interpretation Comments Urine Mucus (test code = 8247-9) MANY RARE [facility]ererum or plasma sodium measurement (moles/volume)2020-04-11 12:42:00* Test Item Value Reference Range Interpretation Comments Sodium Level (test code = 2951-2) 139 136-145 [facility]ererum or plasma potassium measurement (moles/volume)2020-04-11 12:42:00* Test Item Value Reference Range Interpretation Comments Potassium Level (test code = 2823-3) 3.7 3.5-5.1 [facility]ererum or plasma chloride measurement (moles/volume)2020-04-11 12:42:00* Test Item Value Reference Range Interpretation Comments Chloride Level (test code = 2075-0) 106 98-107 [facility]ererum or plasma carbon dioxide, total measurement (moles/volume)2020-04-11 12:42:00* Test Item Value Reference Range Interpretation Comments Carbon Dioxide Level (test code = 2028-9) 23 22-29 [facility]ererum or plasma anion ogk2160-31-17 12:42:00* Test Item Value Reference Range Interpretation Comments Anion Gap (test code = 59808-1) 13.7 8-16 [facility]ererum or plasma urea nitrogen measurement (mass/volume)2020-04-11 12:42:00* Test Item Value Reference Range Interpretation Comments Blood Urea Nitrogen (test code = 3094-0) 11 7-26 [facility]ererum or plasma creatinine measurement (mass/volume)2020-04-11 12:42:00* Test Item Value Reference Range Interpretation Comments Creatinine (test code = 2160-0) 0.88 0.72-1.25 [facility]ererum or plasma urea nitrogen/creatinine mass wuvjq5609-31-35 12:42:00* Test Item Value Reference Range Interpretation Comments BUN/Creatinine Ratio (test code = 3097-3) 13 6-25 [facility]manEstimated glomerular filtration rate (GFR) wnmnfhlxrylqv3975-87-57 12:42:00* Test Item Value Reference Range Interpretation Comments Estimat Glomerular Filtration Rate (test code = 904337647) > 60 >60 Ranges were taken from the National Kidney Disease Education Program and the [place] [facility] Kidney Foundation literature.Reference ranges:60 or greater: Suplzl62-55 ( for 3 consecutive months): Chronic kidney disease 15 or less: Kidney failureTexas Health KaufmanGlucose gwxtkebmrmw4456-41-05 12:42:00* Test Item Value Reference Range Interpretation Comments Glucose Level (test code = MQE1716) 156 74-118 [facility]ererum or plasma calcium measurement (mass/volume)2020-04-11 12:42:00* Test Item Value Reference Range Interpretation Comments Calcium Level (test code = 11585-5) 9.5 8.4-10.2 [facility]ererum or plasma total bilirubin measurement (mass/volume)2020-04-11 12:42:00* Test Item Value Reference Range Interpretation Comments Total Bilirubin (test code = 1975-2) 0.5 0.2-1.2 [facility]manFluoroscopic procedure less than one hour yvwkhpfd8057-96-60 12:42:00* Test Item Value Reference Range Interpretation Comments Aspartate Amino Transf (AST/SGOT) (test code = Aspartate Amino Transf (AST/SGOT)) 59 5-34 [facility]ererum or plasma alanine aminotransferase measurement (enzymatic activity/volume)2020-04-11 12:42:00* Test Item Value Reference Range Interpretation Comments Alanine Aminotransferase (ALT/SGPT) (test code = 1742-6) 59 0-55 [facility]ererum or plasma protein measurement (mass/volume)2020-04-11 12:42:00* Test Item Value Reference Range Interpretation Comments Total Protein (test code = 2885-2) 7.2 6.5-8.1 [facility]ererum or plasma albumin measurement (mass/volume)2020-04-11 12:42:00* Test Item Value Reference Range Interpretation Comments Albumin (test code = 1751-7) 4.0 3.5-5.0 [facility]manPlasma globulin measurement (mass/volume) 2020-04-11 12:42:00* Test Item Value Reference Range Interpretation Comments Globulin (test code = 03051-0) 3.2 2.3-3.5 [facility]ererum or plasma albumin/globulin mass phhwv1383-95-58 12:42:00* Test Item Value Reference Range Interpretation Comments Albumin/Globulin Ratio (test code = 1759-0) 1.3 0.8-2.0 [facility]ererum or plasma alkaline phosphatase measurement (enzymatic activity/volume)2020-04-11 12:42:00* Test Item Value Reference Range Interpretation Comments Alkaline Phosphatase (test code = 6768-6) 130 40-150 [facility]ererum or plasma creatine kinase measurement (enzymatic activity/volume)2020-04-11 12:42:00* Test Item Value Reference Range Interpretation Comments Creatine Kinase (test code = 2157-6) 75 30-200 [facility]ererum or plasma creatine kinase MB measurement (mass/volume)2020-04-11 12:42:00* Test Item Value Reference Range Interpretation Comments Creatine Kinase MB (test code = 10812-4) 0.90 0-5.0 [facility]manTroponin I measurement by highly sensitive enzyme buenfimghkv8681-25-75 12:42:00* Test Item Value Reference Range Interpretation Comments Troponin I (test code = 57501-1) 0.020 0-0.300 [facility]ererum or plasma lipase measurement (enzymatic activity/volume)2020-04-11 12:42:00* Test Item Value Reference Range Interpretation Comments Lipase (test code = 3040-3) 20 8-78 [facility]
--- OUTSIDE RECORDS SUMMARY | 2020-08-11 13:30 | XMS REPORT | Clinical Summary ---
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 Active potassium chloride Take 1 tablet 10 tablet 0 03/22 (KLOR-CON M20) 20 mEq by mouth 6 extended release daily. tabletIndications: Hypokalemia, Muscle spasms of both lower extremities Active ibuprofen (MOTRIN) 800 mg Take 1 tablet 30 tablet 0 tabletIndications: by mouth 6 Chronic midline low back every 8 hours pain without sciatica as needed for Pain. Active gabapentin (NEURONTIN) Take 1 90 capsule 2 100 mg capsule by 6 capsuleIndications: mouth 3 times Anxiety disorder, daily as unspecified type needed for Other (anxiety). Active loratadine (CLARITIN) 10 Take 1 tablet 90 tablet 2 mg tabletIndications: by mouth 6 Seasonal allergic daily. rhinitis due to pollen Active lisinopril (PRINIVIL) 10 Take 1 tablet 90 tablet 2 mg tabletIndications: by mouth 7 Essential hypertension daily. Active atorvastatin (LIPITOR) 40 Take 1 tablet 90 tablet 2 mg tabletIndications: by mouth at 7 Mixed hyperlipidemia bedtime nightly. Active ciclesonide (ZETONNA) 37 Use 1 [place] 6.1 g 2 0 mcg/actuation nasal HFA in each 7 inhaler nostril daily. Substituted for Nasonex per P&T. Active cyclobenzaprine Take 1 tablet 30 tablet 2 03/12/20 1 (FLEXERIL) 10 mg by mouth 7 tabletIndications: Lumbar nightly at radiculopathy bedtime as needed for Muscle Spasms. Active busPIRone (BUSPAR) 10 mg Take 2 180 tablet 3 0 tabletIndications: tablets by 7 Anxiety disorder, mouth 3 times unspecified type daily. Active citalopram (CELEXA) 20 mg Take 2 60 tablet 3 tabletIndications: Major tablets by 7 depressive disorder, mouth daily. single episode, in partial remission Active lamoTRIgine (LAMICTAL) 25 Take 1 tablet 60 tablet 3 mg tabletIndications: by mouth 7 Major depressive daily for 2 disorder, single episode, weeks, then in partial remission take 2 tablets daily.. Active zolpidem (AMBIEN) 10 mg Take 1 tablet 30 tablet 2 TabIndications: Insomnia, by mouth at 7 unspecified bedtime nightly. Active metFORMIN (GLUCOPHAGE XR) Take 1 tablet 90 tablet 2 500 mg ER extended by mouth 7 release daily (with tabletIndications: breakfast). Prediabetes Active HYDROcodone-acetaminophen Take 1 tablet 60 tablet 0 (NORCO) 5-325 mg by mouth 2 7 tabletIndications: Lumbar times daily radiculopathy as needed for Pain. Active Problems Problem Noted Date Major depressive disorder, single episode, in partial remission 05/29/2016 Anxiety disorder 05/29/2016 Chest pain 09/02/2015 Chronic back pain 10/12/2014 Chronic knee pain 10/12/2014 Prediabetes 10/12/2014 Mixed hyperlipidemia 10/12/2014 HTN (hypertension) with goal to be determined 2013 Immunizations Name Administration Dates Next Due Influenza Vaccine 01/08/2017, 01/03/2016 Tdap Tetanus, diphtheria, 01/08/2017 acellular pertussis Vaccine Family History Medical History Relation Name Comments Arthritis Father Cataracts Father Cancer Father lung, throat Hypertension Mother Diabetes Paternal Uncle Relation Name Status Comments Father Father Father cancer (Age 64) Mother Mother Alive Paternal Uncle Social History Date Tobacco Use Types Packs/Day Years Used Former Smoker Drinks/Week oz/Week Comments Alcohol Use 0 Standard drinks or equivalent 0.0 occasionally Yes Food Insecurity Answer Date Recorded Within the past 12 months, you worried that your Never robert e 04/17/2017 food would run out before you got money to buy more. Within the past 12 months, the food you bought Never true 04/17/2017 just didn't last and you didn't have mo yang to get more. Sex Assigned at Date Recorded Not on file Industry Job Start Date Occupation Not on file Not on file Not on file Travel End Travel History Travel Start No recent travel history available. Last Filed Vital Signs Not on file Plan of Treatment Health Maintenance Due Date Last Done Comments Colonoscopy 5yr 05/16/2020 05/16/2015 Results Not on fileafter 08/11/2019 Insurance Type Payer Benefit Subscriber ID Effective Phone Address Plan / Dates Group MEDICARE MEDICARE xxxxxxxxxx 2017-P [phone] [id number] [place] [address]
--- OUTSIDE RECORDS SUMMARY | 2020-08-11 13:30 | XMS REPORT | Continuity of Care Document ---
Author Author DINA Wiggins [employer] Address Unknown Phone Unavailable Care Team Providers Care Telegrapher Agent Name Role Phone JDCPhosphate Information Geenapp Unavailable Un available Problems Problem Status Onset Date Classification Date Reported Comments Source XRAY Active 08/04/2017 [facility] Anxiety (finding) Active Problem 03/24/2019 [facility] Arthritis (disorder) Active Problem 03/24/2019 [facility] Diabetes mellitus (disorder) A ctive Problem [facility] Hypertensive disorder, systemic arterial (disorder) Active Problem 03/24/2019 [facility] Insomnia (disorder) Active Problem 03/24/2019 [facility] Medications Medication Details Route Status Patient Instructions Ordering Provider Order Date Source Trazodone Hydrochloride 50 MG Oral Tablet 50 mg = 1 tab, PO, Bedtime, # 30 tab, 1 Refill(s) Active 06/26/2018 [facility] Metformin hydrochloride 500 MG Oral Tablet 500 mg = 1 tab, PO, Daily, take with a meal, # 30 tab, 1 Refill(s) Active 06/26/2018 [facility] meloxicam 15 mg oral tablet 15 mg = 1 tab, PO, Daily, 0 Refill(s) Active 06/26/2018 [facility] lisinopril 30 mg oral tablet 3 0 mg = 1 tab, PO, Daily, # 30 tab, 0 Refill(s) Active 06/26/2018 [facility] Acetaminophen 325 MG / Hydrocodone Marci trate 7.5 MG Oral Tablet [[place] 7.5/325] 1 tab, PO, Q6H, 0 Refill(s) Active 06/26/2018 [facility] DULoxetine 30 mg oral delayed release capsule 60 mg = 2 cap, PO, Daily, # 60 cap, 0 Refill(s) Active 06/26/2018 [facility] Allergies, Adverse Reactions, Alerts Substance Category Reaction Severity Reaction type Status Date Reported Comments Source No Known Medication Allergies Assertion Drug aller gy [facility] Immunizations No Data Provided for This [...] is noted. IMPRESSION: Minimal right osteoarthritis. SL: [facility] 08/04/2017 [facility] Spine lumbar 2 or 3 views [...] not remarkable. IMPRESSION: Spondylosis as described. SL: [facility] 08/04/2017 [facility] Spine cervical 2 or 3 view DX Study: Cervical spine, 3 views Clinical Indication: -Chronic neck pain Comparison: None FINDINGS: AP, lateral and odontoid images demonstrate normal vertebral alignment. No fracture is evident. Intervertebral disc spaces are maintained. There are small marginal osteophytes at C6-C7. Prevertebral soft tissues are normal. IMPRESSION: Minimal spondylosis. SL: [facility] 08/04/2017 [facility] Consultation Notes No Data Provided for This Section Discharge Summaries No Data Provided for This Section History and Physicals No Data Provided for This Section Vital Signs No Data Provided for This Section Encounters Location Location Details Encounter Type Encounter Number Reason For Visit Attending Provider ADM Date DC Date Status Source [facility] [id number] Kendrick Cheung 08/04/2017 08/05/2017 [facility] Phone Message [id number] 04/23/2018 04/25/2018 [facility] Phone Message [id number] 04/30/2018 05/02/2018 [facility] Phone Message [id number] 05/25/2018 05/27/2018 [facility] Outpatient [id number] BRIAN VILLAREALH 05/27/2018 Active [facility] Amb[facility] Pre-Reg [id number] [facility] 05/27/2018 05/27/2018 [facility] [id number] [facility] 06/23/2018 Active [facility] [place] [facility] Out[facility] [id number] [facility] 06/23/2018 06/24/2018 [facility] Phone Message [id number] 07/02/2018 07/04/2018 [facility] Phone Message [id number] 07/13/2018 07/15/2018 [facility] Phone Message [id number] 07/15/2018 07/17/2018 [facility] Phone Message [id number] 07/15/2018 07/17/2018 [facility] Phone Message [id number] 07/20/2018 07/22/2018 [facility] PreRe [id number] Krystal Garcia 07/21/2018 09/04/2018 [facility] Phone Message [id number] 07/22/2018 07/24/2018 [facility] Phone Message [id number] 07/22/2018 07/24/2018 [facility] Procedures No Data Provided for This Section Assessment and Plan No Data Provided for This Section Plan of Care No Data Provided for This Section Social History Social History Date Source No data available for this section 09/04/2018 [facility] No data available for this section 07/24/2018 [facility] Family History No Data Provided for This Section Advance Directives No Data Provided for This Section Functional Status No Data Provided for This Section
--- NOTE | 2020-08-11 13:48 | Diagnostic Imaging Report ---
TECHNIQUE: Frontal view of the chest. INDICATION: ^CP ^[id number] ^[id number]. COMPARISON: Chest radiograph from 04/11/2020. FINDINGS: LINES/TUBES: None. LUNGS: Mild linear opacity in the left base is most likely due to atelectasis. No consolidation or pulmonary edema. PLEURA: No pneumothorax or significant pleural effusion. HEART AND MEDIASTINUM: The cardiomediastinal silhouette is within normal limits. SOFT TISSUES AND BONES: Unremarkable. IMPRESSION: No acute cardiopulmonary abnormalities. Signed by: Jarred Bear JR, MD on 08/11/2020 1:44 PM
--- NOTE | 2020-08-11 13:51 | Emergency Department Note ---
History of Present Illnes History of Present Illness Chief Complaint: Chest Pain History of Present Illness This is a 55 year old male PATIENT IN FROM HOME WITH COMPLAINTS OF SHARP CHEST PAIN AND CHEST TIGHTNESS STARTING TODAY; STARTING WITH LEFT ARM PAIN YESTERDAY. + ASSOC SOB, DIAPHORESIS. PATIENT STATES THAT HE HAS BEEN FEELING POORLY OVER THE LAST WEEK; RATES PAIN 7/10, APPEARS IN NO DISTRESS, RESP EVEN AND NONLABORED, AMBULATORY WITH CANE. 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 Any updates have been documented here. Past Medical History Recent Fever: No Clinical Suspicion of Infectio: No New/Unexplained Change in Ment: No Past Medical History: Hypertension, Diabetes, Anxiety, Depression, GERD, Hyperlipedemia Other Medical History: NEUROPATHY Past Surgical History: None Other Surgery: RIGHT KNEE RIGHT HAND COLONOSCOPY Social History Smoking Cessation: Never Smoker Counseling Performed: No Alcohol Use: None Any Illegal Drug Use: No TB Exposure/Symptoms: No Physically hurt or threatened: No Family History Family history of heart diseas: No Other Any Pre-Existing Lines (PICC,: No Review of Systems Review of Systems Constitutional: Reports no symptoms EENTM: Reports no symptoms Cardiovascular: Reports as per HPI, Reports chest pain Respiratory: Reports no symptoms Gastrointestinal: Reports no symptoms Genitourinary: Reports no symptoms Musculoskeletal: Reports no symptoms Integumentary: Reports no symptoms Neurological: Reports no symptoms Psychological: Reports no symptoms Endocrine: Reports no symptoms Hematological/Lymphatic: Reports no symptoms Physical Exam Related Data Allergies: Coded Allergies: No Known Allergies (Unverified , 04/10/11) Triage Vital Signs Vital Signs Date Time Temp Pulse Resp B/P (MAP) Pulse Ox O2 Delivery O2 Flow Rate FiO2 08/11/20 12:32 97.4 80 18 175/78 99 Room Air Vital signs reviewed: Yes Physical Exam CONSTITUTIONAL Constitutional: Present well-developed, Present well-nourished HENT HENT: Present normocephalic, Present atraumatic, Present oropharynx clear/moist, Present nose normal HENT L/R: Present left ext ear normal, Present right ext ear normal EYES Eyes: Reports PERRL, Reports conjunctivae normal NECK Neck: Present ROM normal PULMONARY Pulmonary: Present effort normal, Present breath sounds normal CARDIOVASCULAR Cardiovascular: Present regular rhythm, Present heart sounds normal, Present capillary refill normal, Present normal rate GASTROINTESTINAL Abdominal: Present soft, Present nontender, Present bowel sounds normal GENITOURINARY Genitourinary: Present exam deferred SKIN Skin: Present warm, Present dry MUSCULOSKELETAL Musculoskeletal: Present ROM normal NEUROLOGICAL Neurological: Present alert, Present oriented x 3, Present no gross motor or sensory deficits PSYCHOLOGICAL Psychological: Present mood/affect normal, Present judgement normal Results Laboratory Result Diagram: 08/11/20 1240 08/11/20 1240 Laboratory Laboratory Tests Test 08/11/20 12:40 White Blood Count 8.79 x10e3/uL (4.8-10.8) Red Blood Count 4.46 x10e6/uL (4.3-5.7) Hemoglobin 12.6 g/dL (14.0-18.0) Hematocrit 38.6 % (38.2-49.6) Mean Corpuscular Volume 86.5 fL (81-99) Mean Corpuscular Hemoglobin 28.3 pg (28-32) Mean Corpuscular Hemoglobin Concent 32.6 g/dL (31-35) Red Cell Distribution Width 12.4 % (11.7-14.4) Platelet Count 296 x10e3/uL (140-360) Neutrophils (%) (Auto) 66.1 % (38.7-80.0) Lymphocytes (%) (Auto) 23.8 % (18.0-39.1) Monocytes (%) (Auto) 7.1 % (4.4-11.3) Eosinophils (%) (Auto) 2.2 % (0.0-6.0) Basophils (%) (Auto) 0.3 % (0.0-1.0) Neutrophils # (Auto) 5.8 (2.1-6.9) Lymphocytes # (Auto) 2.1 (1.0-3.2) Monocytes # (Auto) 0.6 (0.2-0.8) Eosinophils # (Auto) 0.2 (0.0-0.4) Basophils # (Auto) 0.0 (0.0-0.1) Absolute Immature Granulocyte (auto 0.04 x10e3/uL (0-0.1) Prothrombin Time 13.3 seconds (11.9-14.5) Prothromb Time International Ratio 0.96 Activated Partial Thromboplast Time 33.2 seconds (23.8-35.5) Sodium Level 139 mmol/L (136-145) Potassium Level 4.2 mmol/L (3.5-5.1) Chloride Level 104 mmol/L (98-107) Carbon Dioxide Level 24 mmol/L (22-29) Anion Gap 15.2 mmol/L (8-16) Blood Urea Nitrogen 9 mg/dL (7-26) Creatinine 0.89 mg/dL (0.72-1.25) Estimat Glomerular Filtration Rate > 60 ML/MIN (60-) BUN/Creatinine Ratio 10 (6-25) Glucose Level 128 mg/dL (74-118) Calcium Level 8.1 mg/dL (8.4-10.2) Magnesium Level 1.6 MG/DL (1.3-2.1) Total Bilirubin 0.6 mg/dL (0.2-1.2) Aspartate Amino Transf (AST/SGOT) 27 IU/L (5-34) Alanine Aminotransferase (ALT/SGPT) 28 IU/L (0-55) Alkaline Phosphatase 125 IU/L (40-150) Creatine Kinase 97 IU/L (30-200) Creatine Kinase MB 0.60 ng/mL (0-5.0) Troponin I 0.001 ng/mL (0-0.300) B-Type Natriuretic Peptide 114.8 pg/mL (0-100) Total Protein 7.2 g/dL (6.5-8.1) Albumin 3.8 g/dL (3.5-5.0) Globulin 3.4 g/dL (2.3-3.5) Albumin/Globulin Ratio 1.1 (0.8-2.0) Lab results reviewed: Yes Imaging Imaging results reviewed: Yes Procedures 12 Lead ECG Interpretation ECG Interpretation : ECG: ECG 1 Driver License Examiner: Interpreted by ED physician Date: Aug 11, 2020 Time: 12:31 Rhythm: sinus rhythm Rate: normal BPM: 85 QRS axis: normal ST segments normal: Yes T wave inversion: III, aVR, V1, V2, V3, V4 T waves flattening: II, aVF Clinical Impression: abnormal ECG Assessment & Plan Medical Decision Making MDM CHEST PAIN WITH MULTIPLE RF'S - CBC, CHEM, ECG, CARDIACS, CXR - R/O STEMI/NSTEMI, PNEUMONIA/NON-CARDIAC CAUSES, ELECTROLYTE ABNL, RENAL INSUFF Reassessment Reassessment ADMIT TO DR FRAGA Assessment & Plan Final Impression: (1) Chest pain Depart Disposition: ADMITTED Last Vital Signs Date Time Temp Pulse Resp B/P (MAP) Pulse Ox O2 Delivery O2 Flow Rate FiO2 08/11/20 13:35 98.0 76 19 154/85 98 Room Air Home Meds Reported Medications Omeprazole (OMEPRAZOLE) 40 Mg Capsule.dr, 40 MG PO DAILY 05/08/20 Dicyclomine Hcl (DICYCLOMINE HCL) 20 Mg Tablet, 20 MG PO QID, TAB 05/08/20 Tramadol Hcl (ULTRAM) 50 Mg Tablet, 50 MG PO PRN, TAB 05/08/20 Lisinopril (LISINOPRIL) 10 Mg Tablet, 10 MG PO DAILY, #30 TAB 04/11/20 Atorvastatin Calcium (ATORVASTATIN CALCIUM) 40 Mg Tablet, 40 MG PO HS, #30 TAB 04/11/20 Paroxetine Hcl (PAXIL) 20 Mg Tablet, 20 MG PO DAILY, TAB 04/11/20 Gabapentin (GABAPENTIN) 300 Mg Capsule, 600 MG PO BID, #60 CAP 04/11/20 Metformin Hcl (METFORMIN HCL ER) 500 Mg Tab.er.24, 500 MG PO BID, #60 TAB 04/11/20 Medications in the ED Pantoprazole Sodium 40 mg ONCE ONCE IV ; Start 08/11/20 at 12:33; Stop 08/11/20 at 12:44; Status DC Aspirin 81 mg NOW ONCE PO ; Start 08/11/20 at 12:45; Stop 08/11/20 at 12:46; Status DC JEN BAUTISTA MD Aug 11, 2020 13:51
[2020-08-11] MEDS ORDERED: DEXTROSE 50% SYRINGE 50 ML IV PRN (14:00)
[2020-08-11] MEDS ORDERED: ONDANSETRON HCL INJ 2MG/ML 2ML 2 MG/ML VIAL IV PRN (14:00)
--- OUTSIDE RECORDS SUMMARY | 2020-08-11 14:06 | XMS REPORT | Continuity of Care Document ---
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 Name Role Phone G2 Crowd Information Cognotion Unavailable Un available Problems Problem Status Onset Date Classification Date Reported Comments Source XRAY Active 08/04/2017 [facility] Anxiety (finding) Active Problem 03/24/2019 [facility] Arthritis (disorder) Active Problem 03/24/2019 [facility] Diabetes mellitus (disorder) A ctive Problem [facility] Hypertensive disorder, systemic arterial (disorder) Active Problem 03/24/2019 [facility] Insomnia (disorder) Active Problem 03/24/2019 [facility] Medications Medication Details Route Status Patient Instructions Ordering Provider Order Date Source Trazodone Hydrochloride 50 MG Oral Tablet 50 mg = 1 tab, PO, Bedtime, # 30 tab, 1 Refill(s) Active 06/26/2018 [facility] Metformin hydrochloride 500 MG Oral Tablet 500 mg = 1 tab, PO, Daily, take with a meal, # 30 tab, 1 Refill(s) Active 06/26/2018 [facility] meloxicam 15 mg oral tablet 15 mg = 1 tab, PO, Daily, 0 Refill(s) Active 06/26/2018 [facility] lisinopril 30 mg oral tablet 3 0 mg = 1 tab, PO, Daily, # 30 tab, 0 Refill(s) Active 06/26/2018 [facility] Acetaminophen 325 MG / Hydrocodone Marci trate 7.5 MG Oral Tablet [[place] 7.5/325] 1 tab, PO, Q6H, 0 Refill(s) Active 06/26/2018 [facility] DULoxetine 30 mg oral delayed release capsule 60 mg = 2 cap, PO, Daily, # 60 cap, 0 Refill(s) Active 06/26/2018 [facility] Allergies, Adverse Reactions, Alerts Substance Category Reaction Severity Reaction type Status Date Reported Comments Source No Known Medication Allergies Assertion Drug aller gy [facility] Immunizations No Data Provided for This Section [...] is noted. IMPRESSION: Minimal right osteoarthritis. SL: [facility] 08/04/2017 [facility] Spine lumbar 2 or 3 views DX [...] not remarkable. IMPRESSION: Spondylosis as described. SL: [facility] 08/04/2017 [facility] Spine cervical 2 or 3 view DX Study: Cervical spine, 3 views Clinical Indication: -Chronic neck pain Comparison: None FINDINGS: AP, lateral and odontoid images demonstrate normal vertebral alignment. No fracture is evident. Intervertebral disc spaces are maintained. There are small marginal osteophytes at C6-C7. Prevertebral soft tissues are normal. IMPRESSION: Minimal spondylosis. SL: [facility] 08/04/2017 [facility] Consultation Notes No Data Provided for This Section Discharge Summaries No Data Provided for This Section History and Physicals No Data Provided for This Section Vital Signs No Data Provided for This Section Encounters Location Location Details Encounter Type Encounter Number Reason For Visit Attending Provider ADM Date DC Date Status Source [facility] Outpatient [id number] Kendrick Cheung 08/04/2017 08/05/2017 [facility] Phone Message [id number] 04/23/2018 04/25/2018 [facility] Phone Message [id number] 04/30/2018 05/02/2018 [facility] Phone Message [id number] 05/25/2018 05/27/2018 [facility] Outpatient [id number] BRIAN VILLAREALH 05/27/2018 Active [facility] Pre-Reg [id number] Brian [facility] 05/27/2018 05/27/2018 [facility] [id number] [facility] 06/23/2018 Active [facility] Out[facility] [id number] Brian [facility] 06/23/2018 06/24/2018 [facility] Phone Message [id number] 07/02/2018 07/04/2018 [facility] Phone Message [id number] 07/13/2018 07/15/2018 [facility] Phone Message [id number] 07/15/2018 07/17/2018 [facility] Phone Message [id number] 07/15/2018 07/17/2018 [facility] Phone Message [id number] 07/20/2018 07/22/2018 [facility] PreRe [id number] Krystal Garcia 07/21/2018 09/04/2018 [facility] Phone Message [id number] 07/22/2018 07/24/2018 [facility] Phone Message [id number] 07/22/2018 07/24/2018 [facility] Procedures No Data [...]
--- OUTSIDE RECORDS SUMMARY | 2020-08-11 14:06 | XMS REPORT | Clinical Summary ---
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
--- OUTSIDE RECORDS SUMMARY | 2020-08-11 14:06 | XMS REPORT | Continuity of Care Document ---
Author Author [facility] t Organization [facility] Address [address] [place] [address] Phone Unavailable Care Team Providers Care Agency Owner Name Role Phone MD NAYA SPICER PCP Jhony BAUTISTA Attphys Unavailable RIVER TALBOT M.D. Attphys Unavailable DONALDO BAKER M.D. Attphys UnavailDREW Hercules Attphys Unavailable Isabel Garcia Attphys Savannah Blevins Attphys Kory Cheung Attphys Payers Payer Name Policy Type Policy Number Effective Date Expiration Date Ferdinand Morrell Plus [id number] [facility] Problems Condition Name Condition Details Condition Category Status Onset Date Resolution Date Last Treatment Date Treating Clinician Comments Source XRAY XRAY Active 08/04/2017 [facility] Diagnosis Active 2017-08-04 11:20:00 2017-08-27 13:56:00 [facility] Major depressive disorder, single episode, in partial remission Major depressive disorder, single episode, in partial remission Disease Active 2016-05-29 00:00:00 [facility] Anxiety disorder Anxiety disorder Disease Active 2016-05-29 00:00:00 [facility] Chest pain Chest pain Disease Active 2015-09-02 00:00:00 [facility] Chronic back pain Chronic back pain Disease Active 2014-10-12 00:00:00 [facility] Chronic knee pain Chronic knee pain Disease Active 2014-10-12 00:00:00 [facility] Prediabetes Prediabetes Disease Active 2014-10-12 00:00:00 [facility] Mixed hyperlipidemia Mixed hyperlipidemia Disease Active 00:00:00 [facility] HTN (hypertension) with goal to be determined HTN (hyp ertension) with goal to be determined Disease Active 2014-10-12 00:00:00 [facility] History of arthritis History of arthritis Problem Resolved [facility] History of depression History of depression Problem Resolved [facility] History of hypercholesterolemia History of hypercholesterolemia Problem Resolved [facility] History of high blood pressure History of high blood pressure Probl em Resolved [facility] History of Migraine headache History of Migraine headache Problem Re solved [facility] PAOD (peripheral arterial occlusive disease) PAOD (per ipheral arterial occlusive disease) Problem Active [facility] Obstructive sleep apnea, adult Obstructive sleep apnea, adult Problem Active [facility] Nasal valve collapse Nasal valve collapse Problem Active [facility] Sensorineural hearing loss (SNHL) of both ears Sensori neural hearing loss (SNHL) of both ears Problem Active [facility] Abdominal pain Problem Active [facility] Anxiety (finding) Anxi ety (finding) Active Problem 03/24/2019 [facility] Problem Active 2019-03-24 12:04:5 1 Caleb Neal Arthritis (disorder) Arth ritis (disorder) [facility] Problem Active 12:04:51 Caleb Neal Diabetes mellitus (disorder) D iabetes mellitus (disorder) Active Problem 03/24/2019 [facility] Problem Ac tive 2019-03-24 12:04:51 Caleb bean Insomnia (disorder) Inso mnia (disorder) Active Problem 03/24/2019 [facility] Problem Active 12:04:51 Caleb Neal Allergies, Adverse Reactions, Alerts Allergy Name Allergy Type Status Severity Reaction(s) Onset Date Inacti ve Date Treating Clinician Comments Source No Known Medication Allergies No Known Medication Allergies Active Caleb Neal Family History Family Member Diagnosis Comments Start Date Stop Date Source Father Family history of malignant neoplasm [facility] Natural father Arthritis [facility] Natural [facility] Natural father Cancer [facility] Natural mother Hypertension [facility] kilo Paternal uncle Diabetes [facility] Social History Social Habit Start Date Stop Date Quantity Comments Source Sex Assigned At [facility] Alcohol intake 2019-04-07 00:00:00 2019-04-07 00:00:00 Current drinker of alcohol (finding) [facility] Social [facility] 2018-07-24 04:59:59 2018-07-24 04:59:59 [facility] History SDOH Food Worry 2017-04-17 00:00:00 2017-04-17 00:00:00 1 [facility] Food Scarcity 2017-04-17 00:00:00 2017-04-17 00:00:00 1 [facility] Alcohol Comment 2014-09-20 00:00:00 2014-09-20 00:00:00 occasionally [facility] Smoking Status Start Date Stop Date Source Former smoker 2019-04-07 00:00:00 2019-04-07 00:00:00 [facility] Medications Ordered Medication Name Filled Medication [...] Hydrocodone Marci trate 7.5 MG Oral Tablet [[place] 7.5/325] 2018-06-26 17:13:00 Yes 1 tab, PO, Q 6H, 0 Refill(s) Caleb Neal DULoxetine 30 mg oral delayed release capsule 2018-06-26 17:13:0 0 Yes 60 mg = 2 cap, PO, Daily, # 60 cap, 0 Refill(s) [facility] HYDROcodone-acetaminophen (NORCO) 5-325 mg tablet 2017-05-26 00:00:00 Yes Lumbar radiculopathy 1{tbl} Take 1 tablet by mo [facility] 2 times daily as needed for Pain. [facility] naproxen (NAPROSYN) 500 mg tablet 2017-04-17 09:21:49 Yes 500mg Take 500 mg by mouth 2 times daily (with meals). [facility] metFORMIN (GLUCOPHAGE XR) 500 mg ER extended release tablet 2017-04-17 00:00:00 Yes Prediabetes 500mg QD Take 1 t ablet by mouth daily (with breakfast). [facility] busPIRone (BUSPAR) 10 mg tablet 2017-03-25 00:00:00 Yes Anxiety disorder, unspecified type 20mg Take 2 tablets by mouth 3 times daily. [facility] citalopram (CELEXA) 20 mg tablet 2017-03-25 00:00:00 Yes Major depressive disorder, single episode, in partial remission 40mg QD Take 2 tablets by mouth daily. [facility] lamoTRIgine (LAMICTAL) 25 mg tablet 2017-03-25 00:00:00 Yes Major depressive disorder, single episode, in partial remission Take 1 tablet by mouth daily for 2 weeks, then take 2 tablets daily.. [facility] zolpidem (AMBIEN) 10 mg Tab 2017-03-25 00:00:00 Yes Insomnia, unspecified 10mg Take 1 tablet by mouth at bedtime nightly. [facility] cyclobenzaprine (FLEXERIL) 10 mg tablet 2017-03-12 00:00:00 Yes Lumbar radiculopathy 10mg Take 1 tablet by jessee nightly at bedtime as needed for Muscle Spasms. [facility] ciclesonide (ZETONNA) 37 mcg/actuation nasal HFA inhaler 2017-02-10 00:00:00 Yes 1{spray} QD Use 1 [place] in each nostril daily.Substituted for Nasonex per [employer]&T. [facility] lisinopril (PRINIVIL) 10 mg tablet 2017-01-08 00:00:00 Yes Essential hypertension 10mg QD Take 1 tablet by mouth daily. [facility] atorvastatin (LIPITOR) 40 mg tablet 2017-01-08 00:00:00 Yes Mixed hyperlipidemia 40mg Take 1 tablet by mouth at bedtime nightly. [facility] loratadine (CLARITIN) 10 mg tablet 2016-08-21 00:00:00 Yes Seasonal allergic rhinitis due to pollen 10mg QD Take 1 tablet by mouth suze [place]. [facility] gabapentin (NEURONTIN) 100 mg capsule 2016-08-07 00:00:00 Yes Anxiety disorder, unspecified type 100mg Take 1 capsul e by mouth 3 times daily as needed for Other (anxiety). [facility] ibuprofen (MOTRIN) 800 mg tablet 2016-07-04 00:00:00 Yes Chronic midline low back pain without sciatica 800mg Take 1 ta blet by mouth every 8 hours as needed for Pain. [facility] potassium chloride (KLOR-CON M20) 20 mEq extended release ta blet 2016-03-22 00:00:00 Yes Muscle spasms of both lower extremities 20meq QD Take 1 tablet by mouth daily. [facility] Fluticasone Propionate 50 MCG/ACT Nasal Suspension Flu ticasone Propionate 50 MCG/ACT Nasal Suspension Yes [facility] Citalopram Hydrobromide 10 MG Oral Tablet Citalopram H ydrobromide 10 MG Oral Tablet Yes [facility] Gabapentin 300 MG Oral Capsule Gabapentin 300 MG Oral Capsule Yes [facility] metFORMIN HCl TABS metFORMIN HCl TABS Yes [facility] Omeprazole 40 MG Oral Capsule Delayed Release Omeprazo le 40 MG Oral Capsule Delayed Release Yes [facility] traZODone HCl TABS traZODone HCl TABS Yes [facility] traMADol HCl TABS traMADol HCl TABS Yes [facility] Lisinopril TABS Lisinopril TABS Yes [facility] Atorvastatin Calcium TABS Atorvastatin Calcium TABS Yes [facility] Atorvastatin Calcium Atorvastatin Calcium Yes 40 Bedtime [facility] Gabapentin Gabapentin Yes 600 Twice A Day [facility] Lisinopril Lisinopril Yes 10 Daily [facility] Metformin Hcl (Metformin Hcl Er) 500 Mg TAB.ER.24 Metf ormin Hcl (Metformin Hcl Er) 500 Mg TAB.ER.24 Yes 500 Twice A Day [facility] Paroxetine Hcl (Paxil) 20 Mg TABLET Paroxetine Hcl (Paxil) 20 Mg TABL ET Yes 20 Daily [facility] Immunizations Ordered Immunization Name Filled Immunization Name Date Status Comments Source Tdap Tetanus, diphtheria, acellular pertussis Vaccine 2017-01-08 00:00:00 Completed [facility] Influenza Vaccine 2017-01-08 00:00:00 Completed [facility] Influenza Vaccine 2016-01-03 00:00:00 Completed [facility] Vital Signs Vital Name Observation Time Observation Value Comments Source Body temperature 2020-08-02 13:05:00 97.7 [degF] Method: Temporal [facility] Weight 2020-04-11 12:20:00 217 [lb_av] [facility] BMI (Body Mass Index) 2020-04-11 12:20:00 33.0 kg/m2 [facility] Procedures Procedure Date / Time Performed Performing Clinician [facility] Sleep Lab - Sleep Study Home Sleep Test 2020-08-02 00:00:00 [facility] Computed tomography of abdomen and pelvis with contrast 00:00:00 [facility] History of Knee Surgery [facility] History of Hand Surgery [facility] History of Colonoscopy [facility] Plan of Care Planned Activity Planned Date Details Comments Source Future Scheduled Test 2020-06-03 00:00:00 INFLUENZA VACCINE [code = INFLUENZA VACCINE] [facility] Scheduled Test 2020-05-16 00:00:00 Screening for kelsey gnant neoplasm of colon (procedure) [code = 105118026] [facility] Scheduled Test 2014 00:00:00 COLONOSCOPY SCREEN ING [code = COLONOSCOPY SCREENING] [facility] Scheduled Test 2014 00:00:00 SHINGLES VACCINES (#1) [code = SHINGLES VACCINES (#1)] [facility] Scheduled Test 1974 00:00:00 DIABETIC FOOT EXAM [code = DIABETIC FOOT EXAM] [facility] Scheduled Test 1974 00:00:00 URINE MICROALBUMIN [code = URINE MICROALBUMIN] [facility] Scheduled Test 1964 00:00:00 DIABETIC RETINAL E YE EXAM [code = DIABETIC RETINAL EYE EXAM] [facility] Appointment 2020-09-06 10:30:00 Tanika FULTON. OLIVIA, [facility] Future Appointment 2020-08-18 13:30:00 DREW AMADO [facility] Instructions Abdominal Pain - Adult [facility] Ferdinand bolivar [facility] Encounters Start Date/Time End Date/Time Encounter Type Admission Type Attendi [facility] Care Department Encounter ID Source 2020-08-04 10:15:00 2020-08-04 10:15:00 Appointment; RIVER TALBOT M.D. MARTIN, GORDON, M.D. [facility] Thoracic Surgery [facility] [id number] [facility] 2020-08-02 13:30:00 2020-08-02 13:30:00 Appointment; DONALDO DUVALL M.D. GOMEZ-RIVERA, FERNANDO, M.D. [facility] [place] rhinolaryngology [facility] [id number] [facility] 2020-08-02 13:00:00 2020-08-02 13:00:00 Appointment; ILIA AMADO NANCY [facility] Otorhinolaryngology [facility] [id number] [facility] 2020-04-11 11:51:00 2020-04-11 17:18:00 Departed Emergency Room [address] [facility] [id number] [facility] 2018-07-21 11:46:46 2018-09-04 16:00:00 Outpatient Krystal Garcia [facility] [id number] 2018-07-22 11:23:00 2018-07-23 23:59:59 Outpatient MHMIS BRANDO [facility] [id number] 2018-07-22 11:22:00 2018-07-23 23:59:59 Outpatient MHMIS BRANDO [facility] [id number] 2018-07-20 13:27:00 2018-07-21 23:59:59 Outpatient MHMIS BRANDO M[facility] [id number] 2018-07-15 08:43:00 2018-07-16 23:59:59 Outpatient MHMIS BRANDO MHMIS[facility]ER [id number] 2018-07-15 08:42:00 2018-07-16 23:59:59 Outpatient MHMIS BRANDO MHMISCHER [id number] 2018-07-13 13:58:00 2018-07-14 23:59:59 Outpatient MHMIS BRANDO MHMISCHER [id number] 2018-07-13 13:58:00 2018-07-14 23:59:59 Outpatient MHMIS BRANDO MHMISCHER [id number] 2018-07-02 15:35:00 2018-07-03 23:59:59 Outpatient MHMIS BRANDO [facility] [id number] 2018-06-23 12:30:00 2018-06-23 23:59:59 Outpatient Brian Blevins [facility] [id number] 2018-05-27 13:00:00 2018-05-27 13:00:00 Outpatient Brian Blevins [facility] [id number] 2018-05-25 11:53:00 2018-05-26 23:59:59 Outpatient MHMIS BRANDO MHMIS[facility]ER [id number] 2018-05-25 11:53:00 2018-05-26 23:59:59 Outpatient MHMIS BRANDO MHMIS[facility]ER [id number] 2018-04-30 11:08:00 2018-05-01 23:59:59 Outpatient MHMIS BRANDO MHMISCHER [id number] 2018-04-23 16:47:00 2018-04-24 23:59:59 Outpatient MHMIS BRANDO MHMISCHER [id number] 2017-08-13 00:00:00 2017-08-13 00:00:00 Outpatient [facility] [id number] [facility] 2017-08-04 11:19:00 2017-08-04 23:59:00 Outpatient Kendrick Cheung Kory Hammond MHSE [facility]SE [id number] 2017-07-23 00:00:00 2017-07-23 00:00:00 Outpatient [facility] [id number] [facility] 2017-06-19 00:00:00 2017-06-19 00:00:00 Outpatient [facility] [id number] [facility] 2017-06-19 00:00:00 2017-06-19 00:00:00 Outpatient [facility] [id number] [facility] 2017-06-11 00:00:00 2017-06-11 00:00:00 Outpatient [facility] [id number] [facility] 2017-06-03 00:00:00 2017-06-03 00:00:00 Outpatient [facility] [id number] [facility] 2017-05-26 14:02:23 2017-05-26 14:02:23 Outpatient [facility] [id number] [facility] 2017-05-26 00:00:00 2017-05-26 00:00:00 Outpatient [facility] [id number] [facility] 2017-05-19 00:00:00 2017-05-19 00:00:00 Outpatient [facility] [id number] [facility] 2017-05-14 00:00:00 2017-05-14 00:00:00 Outpatient [facility] [id number] [facility] 2017-05-01 08:56:24 2017-05-01 08:56:24 Outpatient [facility] [id number] [facility] 2017-04-18 08:13:23 2017-04-18 08:13:23 Outpatient [facility] [id number] [facility] 2017-04-17 11:24:22 2017-04-17 11:24:22 Outpatient [facility] [id number] [facility] 2017-04-17 10:30:06 2017-04-17 10:30:06 Outpatient [facility] [id number] [facility] 2017-04-17 08:54:15 2017-04-17 08:54:15 Outpatient [facility] [id number] [facility] 2017-03-25 09:47:50 2017-03-25 09:47:50 Outpatient [facility] [id number] [facility] 2017-03-25 00:00:00 2017-03-25 00:00:00 Outpatient [facility] [id number] [facility] 2017-03-12 10:32:22 2017-03-12 10:32:22 Outpatient [facility] [id number] [facility] 2017-02-10 14:48:55 2017-02-10 14:48:55 Outpatient [facility] [id number] [facility] 2017-02-10 10:52:08 2017-02-10 10:52:08 Outpatient [facility] [id number] [facility] 2017-02-04 08:36:27 2017-02-04 08:36:27 Outpatient [facility] [id number] [facility] 2017-01-08 09:05:43 2017-01-08 09:05:43 Outpatient [facility] [id number] [facility] 2016-12-12 11:03:43 2016-12-12 11:03:43 Outpatient [facility] [id number] [facility] 2016-11-07 11:06:36 2016-11-07 11:06:36 Outpatient [facility] [id number] [facility] 2016-10-01 10:03:12 2016-10-01 10:03:12 Outpatient [facility] [id number] [facility] 2016-09-21 07:43:39 2016-09-21 07:43:39 Outpatient [facility] [id number] [facility] 2016-09-20 08:30:29 2016-09-20 08:30:29 Outpatient [facility] [id number] [facility] 2016-08-21 09:32:31 2016-08-21 09:32:31 Outpatient [facility] [id number] [facility] 2016-08-21 08:11:18 2016-08-21 08:11:18 Outpatient [facility] [id number] [facility] 2016-08-07 09:36:17 2016-08-07 09:36:17 Outpatient [facility] [id number] [facility] 2016-08-07 09:09:24 2016-08-07 09:09:24 Outpatient [facility] [id number] [facility] 2016-07-22 07:57:53 2016-07-22 07:57:53 Outpatient [facility] [id number] [facility] 2016-07-04 13:28:47 2016-07-04 13:28:47 Emergency [facility] [id number] [facility] 2016-07-04 12:34:11 2016-07-04 12:34:11 Emergency [facility] [id number] [facility] 2016-06-27 13:50:35 2016-06-27 13:50:35 Outpatient [facility] [id number] [facility] 2016-06-24 10:03:04 2016-06-24 10:03:04 Outpatient [facility] [id number] [facility] 2016-06-24 08:20:56 2016-06-24 08:20:56 Outpatient [facility] [id number] [facility] 2016-06-12 08:48:10 2016-06-12 08:48:10 Outpatient [facility] [id number] [facility] 2016-05-29 07:10:50 2016-05-29 07:10:50 Outpatient [facility] [id number] [facility] 2016-05-24 09:10:07 2016-05-24 09:10:07 Outpatient [facility] [id number] [facility] 2016-05-24 08:07:57 2016-05-24 08:07:57 Outpatient [facility] [id number] [facility] 2016-05-13 20:13:53 2016-05-13 20:13:53 Outpatient [facility] [id number] [facility] 2016-05-03 08:11:54 2016-05-03 08:11:54 Outpatient [facility] [id number] [facility] 2016-04-24 09:19:34 2016-04-24 09:19:34 Outpatient [facility] [id number] [facility] 2016-04-24 08:00:01 2016-04-24 08:00:01 Outpatient [facility] [id number] [facility] 2016-04-16 07:30:07 2016-04-16 07:30:07 Outpatient [facility] [id number] [facility] 2016-03-30 14:19:07 2016-03-30 14:19:07 Outpatient [facility] [id number] [facility] 2016-03-22 08:58:36 2016-03-22 08:58:36 Outpatient [facility] [id number] [facility] 2016-03-22 08:26:51 2016-03-22 08:26:51 Outpatient [facility] [id number] [facility] 2016-03-11 09:13:10 2016-03-11 09:13:10 Outpatient [facility] [id number] [facility] 2016-02-22 08:11:54 2016-02-22 08:11:54 Outpatient [facility] [id number] [facility] 2016-02-05 07:21:50 2016-02-05 07:21:50 Outpatient [facility] [id number] [facility] 2016-01-22 09:04:31 2016-01-22 09:04:31 Outpatient [facility] [id number] [facility] 2016-01-22 08:01:29 2016-01-22 08:01:29 Outpatient [facility] [id number] [facility] 2016-01-03 10:41:17 2016-01-03 10:41:17 Outpatient [facility] [id number] [facility] 2015-12-25 09:01:29 2015-12-25 09:01:29 Outpatient [facility] [id number] [facility] 2015-12-25 08:06:58 2015-12-25 08:06:58 Outpatient [facility] [id number] [facility] 2015-12-12 08:49:22 2015-12-12 08:49:22 Outpatient [facility] [id number] [facility] 2015-12-04 07:08:05 2015-12-04 07:08:05 Outpatient [facility] [id number] [facility] 2015-11-27 08:51:57 2015-11-27 08:51:57 Outpatient [facility] [id number] [facility] 2015-11-27 08:00:27 2015-11-27 08:00:27 Outpatient [facility] [id number] [facility] 2015-10-30 09:22:53 2015-10-30 09:22:53 Outpatient [facility] [id number] [facility] 2015-10-30 08:02:10 2015-10-30 08:02:10 Outpatient [facility] [id number] [facility] 2015-10-20 06:51:44 2015-10-20 06:51:44 Outpatient [facility] [id number] [facility] [facility] 2015-10-02 08:05:23 2015-10-02 08:05:23 Outpatient [facility] [id number] [facility] 2015-10-02 07:10:10 2015-10-02 07:10:10 Outpatient [facility] [id number] [facility] 2015-09-04 13:50:07 2015-09-04 13:50:07 Outpatient [facility] [id number] [facility] 2015-09-02 19:05:45 2015-09-02 19:05:45 Emergency [facility] [id number] [facility] 2015-09-02 17:49:42 2015-09-02 17:49:42 Emergency [facility] [id number] [facility] Results Test Description Test Time Test Comments Results Result Comments Source CHEST SINGLE (PORTABLE) 2020-08-11 13:40:00 [place] [address] Patient Name: DINA RUSSO MR #: [id number] : 1965 Age/Sex: 55/M Req #: [id number] Adm Physician: Ordered by: JEN BAUTISTA MD Report #: [id number] Location: ER Room/Bed: Procedure: [id number] DX/CHEST SINGLE (PORTABLE) Exam Date: 08/11/20 Exam Time: 1245 REPORT STATUS: Signed TECHNIQUE: Frontal view of the chest. INDICATION: CP [id number]. COMPARISON: Chest radiograph from 04/11/2020. FINDINGS: LINES/TUBES: None. LUNGS: Mild linear opacity in the left base is most likely due to atelectasis. No co nsolidation or pulmonary edema. PLEURA: No pneumothorax or significant pleural effusion. HEART AND MEDIASTINUM: The cardiomediastinal silhouette is within normal limits. SOFT TISSUES AND BONES: Unremarkable. IMPRESSION: No acute cardiopulmonary abnormalities. Signed by: Jarred Bear JR, MD on 08/11/2020 1:44 PM Dictated By: JARRED BEAR MD 134 Transcribed By: KAREN on 08/11/20 1344 COPY TO: JEN BAUTISTA MD CHEST SINGLE (PORTABLE) 2020-04-11 15:06:00 [place] [address] Patient Name: DINA RUSSO MR #: [id number] : 1965 Age/Sex: 54/M Req #: [id number] Adm Physician: Ordered by: JEN BAUTISTA MD Report #: [id number] Location: ER Room/Bed: Procedure: DX/CHEST SINGLE (PORTABLE) Exam Date: 04/11/20 Exam [...] By: PATRICK PEPE MD 1506 Transcribed By: KAREN on 04/11/20 1506 COPY TO: JEN BAUTISTA MD CT ABDOMEN/PELVIS W 2020-04-11 15:00:00 [place] [address] Patient Name: DINA RUSSO MR #: [id number] : 1965 Age/Sex: 54/M Req #: [id number] Adm Physician: Ordered by: JEN BAUTISTA MD Report #: [id number] Location: ER Room/Bed: Procedure: [id number] CT/CT ABDOMEN/PELVIS W Exam Date: 04/11/20 Exam [...] 3:13 PM Dictated By: DINA MORGAN MD 1513 Transcribed By: KAREN on 04/11/20 1513 COPY TO: JEN BAUTISTA MD Blood leukocytes automated count (number/volume) 2020-04-11 12:42:00 Test Item White Blood Count (test code = 6690-2) 7.66 4.8-10.8 [facility] erythrocytes automated count (number/volume)2020-04-11 12:42:00* Test Item Value Reference Range Interpretation Comments Red Blood Count (test code = 789-8) 4.88 4.3-5.7 [facility] WorthBlood hemoglobin measurement (moles/volume)2020-04-11 12:42:00* Test Item Value Reference Range Interpretation Comments Hemoglobin (test code = 50034-9) 13.7 14.0-18.0 [facility] WorthAutomated blood hematocrit (volume fraction)2020-04-11 12:42:00* Test Item Value Reference Range Interpretation Comments Hematocrit (test code = 4544-3) 41.1 38.2-49.6 [facility] WorthAutomated erythrocyte mean corpuscular hyxpnf0469-69-57 12:42:00* Test Item Value Reference Range Interpretation Comments Mean Corpuscular Volume (test code = 787-2) 84.2 81-99 [facility] WorthAutomated erythrocyte mean corpuscular hemoglobin (mass per erythrocyte)2020-04-11 12:42:00* Test Item Value Reference Range Interpretation Comments Mean Corpuscular Hemoglobin (test code = 785-6) 28.1 28-32 [facility] WorthAutpending sale to novant healthed erythrocyte mean corpuscular hemoglobin concentration measurement (mass/volume)2020-04-11 12:42:00* Test Item Value Reference Range Interpretation Comments Mean Corpuscular Hemoglobin Concent (test code = 786-4) 33.3 31-35 [facility] WorthRDW YzaDb-Cgz8809-56-09 12:42:00* Test Item Value Reference Range Interpretation Comments Red Cell Distribution Width (test code = 94574-0) 12.8 11.7 -14.4 [facility] WorthAutomated blood platelet count (count/volume)2020-04-11 12:42:00* Test Item Value Reference Range Interpretation Comments Platelet Count (test code = 777-3) 293 140-360 [facility] neutrophil count as percentage of total skgcopteoe8493-73-15 12:42:00* Test Item Value Reference Range Interpretation Comments Neutrophils (%) (Auto) (test code = 79043-9) 65.9 38.7-80.0 [facility] lymphocyte count as percentage ot total lozozwdxzc0527-91-77 12:42:00* Test Item Value Reference Range Interpretation Comments Lymphocytes (%) (Auto) (test code = 736-9) 24.5 18.0-39.1 [facility] WorthAutomated blood monocyte count as percentage of total kegunaxhdd6867-46-47 12:42:00* Test Item Value Reference Range Interpretation Comments Monocytes (%) (Auto) (test code = 5905-5) 7.0 4.4-11.3 [facility] WorthAutomated blood eosinophil count as percentage of total wxzkdhtogl7756-38-72 12:42:00* Test Item Value Reference Range Interpretation Comments Eosinophils (%) (Auto) (test code = 713-8) 1.8 0.0-6.0 [facility] WorthAutom[facility] blood basophil count as percentage of total xhdgrdrcys6362-83-47 12:42:00* Test Item Value Reference Range Interpretation Comments Basophils (%) (Auto) (test code = 706-2) 0.3 0.0-1.0 [facility] WorthFluoroscopic procedure less than one hour wetdlhrb6902-94-91 12:42:00* Test Item Value Reference Range Interpretation Comments IM GRANULOCYTES % (test code = IM GRANULOCYTES %) 0.5 0.0- 1.0 [facility] WorthAutom[facility] blood neutrophil count 2020-04-11 12:42:00* Test Item Value Reference Range Interpretation Comments Neutrophils # (Auto) (test code = 751-8) 5.0 2.1-6.9 [facility] WorthBlood lymphocytes count (number/volume) 2020-04-11 12:42:00* Test Item Value Reference Range Interpretation Comments Lymphocytes # (Auto) (test code = 40076-4) 1.9 1.0-3.2 [facility] WorthBlood monocytes automated count (number/volume)2020-04-11 12:42:00* Test Item Value Reference Range Interpretation Comments Monocytes # (Auto) (test code = 742-7) 0.5 0.2-0.8 [facility] WorthAutomated blood eosinophil count 2020-04-11 12:42:00* Test Item Value Reference Range Interpretation Comments Eosinophils # (Auto) (test code = 711-2) 0.1 0.0-0.4 [facility] WorthAutomated blood basophil count (count/volume)2020-04-11 12:42:00* Test Item Value Reference Range Interpretation Comments Basophils # (Auto) (test code = 704-7) 0.0 0.0-0.1 [facility] WorthFluoroscopic procedure less than one hour fugnhkyi3791-85-80 12:42:00* Test Item Value Reference Range Interpretation Comments Absolute Immature Granulocyte (auto (milagro t code = Absolute Immature Granulocyte (auto) 0.04 0-0.1 [facility] WorthProthrombin time (PT) in platelet poor plasma by coagulation tewtz4575-45-67 12:42:00* Test Item Value Reference Range Interpretation Comments Prothrombin Time (test code = 5902-2) 12.1 11.9-14.5 [facility] WorthINR in Platelet poor plasma by Coagulation ibsml3221-25-63 12:42:00* Test Item Value Reference Range Interpretation Comments Prothromb Time International Ratio (test code = 6301-6) 0.85 Oral Anticoagulant Therapy INR Values:1. Low Intensity Therapy 1.5 - 2.02 . Moderate Intensity Therapy 2.0 - 3.03. High Intensity Therapy(1) 2.5 - 3. 54. High Intensity Therapy(2) 3.0 - 4.05. Panic Value INR > 5.0 [facility] WorthActivated partial thromboplastin time (aPTT) in platelet poor plasma by coagulation pzuuo5084-68-50 12:42:00* Test Item Value Reference Range Interpretation Comments Activated Partial Thromboplast Time (test code = 68800-0) 34.3 23.8-35.5 [facility] WorthUrine color bjugohdkukvum9628-30-69 12:42:00* Test Item Value Reference Range Interpretation Comments Urine Color (test code = 5778-6) YELLOW YELLOW [facility] WorthUrine exvpuwm1563-02-17 12:42:00* Test Item Value Reference Range Interpretation Comments Urine Clarity (test code = 39552-9) CLEAR CLEAR [facility] Centerpecific gravity of Urine by Test strip 2020-04-11 12:42:00* Test Item Value Reference Range Interpretation Comments Urine Specific [place] (test code = 5811-5) 1.030 1.010-1.02 5 [facility] WorthUrine pH measurement by automated test gmeqm2452-14-98 12:42:00* Test Item Value Reference Range Interpretation Comments Urine pH (test code = 46074-5) 5.5 5-7 [facility] WorthUrine leukocyte esterase detection by buywarct7678-11-23 12:42:00* Test Item Value Reference Range Interpretation Comments Urine Leukocyte Esterase (test code = 5799-2) NEGATIVE NEGATIVE [facility] WorthUrine nitrite gjsicvooj3005-76-59 12:42:00* Test Item Value Reference Range Interpretation Comments Urine Nitrite (test code = 35807-6) NEGATIVE NEGATIVE [facility] WorthUrine protein measurement by test strip (mass/volume)2020-04-11 12:42:00* Test Item Value Reference Range Interpretation Comments Urine Protein (test code = 5804-0) NEGATIVE NEGATIVE [facility] WorthUrine glucose ttyrgvcyp7953-49-11 12:42:00* Test Item Value Reference Range Interpretation Comments Urine Glucose (UA) (test code = 2349-9) 2+ NEGATIVE [facility] WorthUrine ketones detection by automated test okwmc0463-48-39 12:42:00* Test Item Value Reference Range Interpretation Comments Urine Ketones (test code = 86393-8) NEGATIVE NEGATIVE [facility] WorthUrine urobilinogen measurement by test strip (mass/volume)2020-04-11 12:42:00* Test Item Value Reference Range Interpretation Comments Urine Urobilinogen (test code = 30008-7) 0.2 0.2-1 [facility] WorthUrine total bilirubin measurement (mass/volume)2020-04-11 12:42:00* Test Item Value Reference Range Interpretation Comments Urine Bilirubin (test code = 1978-6) NEGATIVE NEGATIVE [facility] WorthUrine erythrocytes sfthjecyu9645-71-86 12:42:00* Test Item Value Reference Range Interpretation Comments Urine Blood (test code = 49480-1) TRACE NEGATIVE [facility] WorthAutomated urine sediment leukocyte count by microscopy (number/high power field)2020-04-11 12:42:00* Test Item Value Reference Range Interpretation Comments Urine WBC (test code = 5821-4) 0-5 0-5 [facility] WorthErythrocytes detection in urine sediment by light yaafhkvzsj8719-19-95 12:42:00* Test Item Value Reference Range Interpretation Comments Urine RBC (test code = 47159-7) 0-5 0-5 [facility] WorthBacteria detection in urine sediment by light wubxzbflkz8709-96-13 12:42:00* Test Item Value Reference Range Interpretation Comments Urine Bacteria (test code = 13016-7) FEW NONE [facility] WorthEpithelial cells detection in urine sediment by light cuaarcdydi3429-96-54 12:42:00* Test Item Value Reference Range Interpretation Comments Urine Epithelial Cells (test code = 67500-5) RARE NONE [facility] WorthMucus detection in urine sediment by light qpfuaarpex5411-96-46 12:42:00* Test Item Value Reference Range Interpretation Comments Urine Mucus (test code = 8247-9) MANY RARE [facility] Centererum or plasma sodium measurement (moles/volume)2020-04-11 12:42:00* Test Item Value Reference Range Interpretation Comments Sodium Level (test code = 2951-2) 139 136-145 [facility] Centererum or plasma potassium measurement (moles/volume)2020-04-11 12:42:00* Test Item Value Reference Range Interpretation Comments Potassium Level (test code = 2823-3) 3.7 3.5-5.1 [facility] Centererum or plasma chloride measurement (moles/volume)2020-04-11 12:42:00* Test Item Value Reference Range Interpretation Comments Chloride Level (test code = 2075-0) 106 98-107 [facility] Centererum or plasma carbon dioxide, total measurement (moles/volume)2020-04-11 12:42:00* Test Item Value Reference Range Interpretation Comments Carbon Dioxide Level (test code = 2028-9) 23 22-29 [facility] Centererum or plasma anion cwk7441-14-51 12:42:00* Test Item Value Reference Range Interpretation Comments Anion Gap (test code = 98200-0) 13.7 8-16 [facility] Centererum or plasma urea nitrogen measurement (mass/volume)2020-04-11 12:42:00* Test Item Value Reference Range Interpretation Comments Blood Urea Nitrogen (test code = 3094-0) 11 7-26 [facility] Centererum or plasma creatinine measurement (mass/volume)2020-04-11 12:42:00* Test Item Value Reference Range Interpretation Comments Creatinine (test code = 2160-0) 0.88 0.72-1.25 [facility] Centererum or plasma urea nitrogen/creatinine mass ffjql4849-97-41 12:42:00* Test Item Value Reference Range Interpretation Comments BUN/Creatinine Ratio (test code = 3097-3) 13 6-25 [facility] WorthEstimated glomerular filtration rate (GFR) wxcxefvhrosts7799-46-49 12:42:00* Test Item Value Reference Range Interpretation Comments Estimat Glomerular Filtration Rate (test code = 155048816) > 60 >60 Ranges were taken from the National Kidney Disease Education Program and the [facility] [employer] literature.Reference ranges:60 or greater: Zzlbop78-15 ( for 3 consecutive months): Chronic kidney disease 15 or less: Kidney failureTexas Health [facility] WorthGlucose vdeqreoxcmt7408-08-88 12:42:00* Test Item Value Reference Range Interpretation Comments Glucose Level (test code = ZGO8277) 156 74-118 [facility]ererum or plasma calcium measurement (mass/volume)2020-04-11 12:42:00* Test Item Value Reference Range Interpretation Comments Calcium Level (test code = 01616-5) 9.5 8.4-10.2 [facility] Centererum or plasma total bilirubin measurement (mass/volume)2020-04-11 12:42:00* Test Item Value Reference Range Interpretation Comments Total Bilirubin (test code = 1975-2) 0.5 0.2-1.2 [facility] WorthFluoroscopic procedure less than one hour cefabztl2989-86-99 12:42:00* Test Item Value Reference Range Interpretation Comments Aspartate Amino Transf (AST/SGOT) (test code = Aspartate Amino Transf (AST/SGOT)) 59 5-34 [facility] Centererum or plasma alanine aminotransferase measurement (enzymatic activity/volume)2020-04-11 12:42:00* Test Item Value Reference Range Interpretation Comments Alanine Aminotransferase (ALT/SGPT) (test code = 1742-6) 59 0-55 [facility] Centererum or plasma protein measurement (mass/volume)2020-04-11 12:42:00* Test Item Value Reference Range Interpretation Comments Total Protein (test code = 2885-2) 7.2 6.5-8.1 [facility] Centererum or plasma albumin measurement (mass/volume)2020-04-11 12:42:00* Test Item Value Reference Range Interpretation Comments Albumin (test code = 1751-7) 4.0 3.5-5.0 [facility] WorthPlasma globulin measurement (mass/volume) 2020-04-11 12:42:00* Test Item Value Reference Range Interpretation Comments Globulin (test code = 82307-2) 3.2 2.3-3.5 [facility] Centererum or plasma albumin/globulin mass mowwe4059-36-32 12:42:00* Test Item Value Reference Range Interpretation Comments Albumin/Globulin Ratio (test code = 1759-0) 1.3 0.8-2.0 [facility] Centererum or plasma alkaline phosphatase measurement (enzymatic activity/volume)2020-04-11 12:42:00* Test Item Value Reference Range Interpretation Comments Alkaline Phosphatase (test code = 6768-6) 130 40-150 [facility] Centererum or plasma creatine kinase measurement (enzymatic activity/volume)2020-04-11 12:42:00* Test Item Value Reference Range Interpretation Comments Creatine Kinase (test code = 2157-6) 75 30-200 [facility] Centererum or plasma creatine kinase MB measurement (mass/volume)2020-04-11 12:42:00* Test Item Value Reference Range Interpretation Comments Creatine Kinase MB (test code = 78625-2) 0.90 0-5.0 [facility] WorthTroponin I measurement by highly sensitive enzyme kspbckkxtny7198-67-14 12:42:00* Test Item Value Reference Range Interpretation Comments Troponin I (test code = 64334-7) 0.020 0-0.300 [facility] Centererum or plasma lipase measurement (enzymatic activity/volume)2020-04-11 12:42:00* Test Item Value Reference Range Interpretation Comments Lipase (test code = 3040-3) 20 8-78 [facility]
--- OUTSIDE RECORDS SUMMARY | 2020-08-11 14:06 | XMS REPORT | Clinical Summary ---
Author Author [facility] ict Organization [facility] ict Address Unknown Phone Unavailable Care Team Providers Care Workforce Advisor Name Role Phone PCP Unavailable Allergies No [...] nightly. Active ciclesonide (ZETONNA) 37 Use 1 Dolph 6.1 g 2 0 mcg/actuation nasal HFA [...] / Dates Group MEDICARE MEDICARE xxxxxxxxxx 2017-P [phone] [id number] [place] [address]
[2020-08-11 15:09] VITALS: BP 153/80
[2020-08-11] MEDS ORDERED: TRAZODONE HCL50 MG PO (15:40)
[2020-08-11] MEDS ORDERED: CITALOPRAM HBR20 MG PO (15:40)
[2020-08-11] MEDS ORDERED: FLUTICASONE (15:40)
--- NOTE | 2020-08-11 15:42 | NUR ---
PATIENT ARRIVED ON THE UNIT AT 1500 PER WHEELCHAIR FROM THE ER. PATIENT IS AWAKE, ALERT, AND IN STABLE CONDITION WITH NO S/S OF RESPIRATORY DISTRESS. PATIENT C/O CHEST PAIN 05/12. TELEMETRY APPLIED. SKINS INTACT. PATIENT HAS PERSONAL CANE AVAILABLE BY BEDSIDE. CALL LIGHT IS WITHIN REACH OF PATIENT, PATIENT INSTRUCTED TO CALL FOR ASSISTANCE NEEDED.
[2020-08-11] MEDS: MORPHINE SULFATE 2 MG/ML SYR 1ML IV PRN (15:51)
[2020-08-11 16:00] VITALS: BP 153/80
[2020-08-11] MEDS: INSULIN LISPRO 100 UNIT/1 ML 3ML VIAL SQ SCH ×2 (16:30→21:00)
[2020-08-11] MEDS ORDERED: HYDRALAZINE HCL 25 MG TAB PO PRN (16:45)
[2020-08-11] MEDS: LISINOPRIL 10 MG TAB PO SCH (17:05)
[2020-08-11] MEDS: GABAPENTIN 300 MG CAP PO SCH (17:06)
[2020-08-11 17:25] VITALS: BP 153/80
--- NOTE | 2020-08-11 18:49 | NUR ---
PATIENT IS IN STABLE CONDITION WITH NO S/S OF RESPIRATORY DISTRESS. NO C/O OF CHEST PAIN; PATIENT C/O LEFT ARM PAIN. TELEMETRY APPLIED. PATIENT'S PERSONAL CANE AVAILABLE BY BEDSIDE. CALL LIGHT IS WITHIN REACH OF PATIENT, PATIENT INSTRUCTED TO CALL FOR ASSISTANCE NEEDED. BEDSIDE SHIFT REPORT GIVEN TO ONCOMING NURSE.
--- NOTE | 2020-08-11 19:44 | NUR ---
Received change of shift report from AM nurse. Walking rounds completed.
[2020-08-11 19:45] LABS: CREATINE KINASE MB 0.5 ng/mL (0-5.0)
[2020-08-11] MEDS: TRAMADOL HCL 50 MG TAB PO PRN (19:54)
[2020-08-11 20:00] VITALS: BP 154/85
[2020-08-11] MEDS: TRAZODONE HCL 50 MG TAB PO SCH (20:00)
[2020-08-11] MEDS: ATORVASTATIN 40 MG TAB PO SCH (20:00)
--- NOTE | 2020-08-11 20:27 | NUR ---
Patient c/o pain=6 to left shoulder and arm. Pain pill given as ordered by MD. Continue monitor.
[2020-08-11 20:43] VITALS: BP 154/85
--- NOTE | 2020-08-11 22:15 | NUR ---
Patient has 2 - cardiac enz. Continue treating for chest pain.
[2020-08-12] VITALS (8 sets, daily range): BP systolic 122–176; BP diastolic 71–87
[2020-08-12 05:08] LABS: BASOPHILS % 0.5 % (0.0-1.0); EOSINOPHILS # (AUTO) 0.2 (0.0-0.4); EOSINOPHILS % 1.9 % (0.0-6.0); HEMATOCRIT 36.3 % (38.2-49.6); HEMOGLOBIN 11.9 g/dL (14.0-18.0); LYMPHOCYTES # (AUTO) 1.8 (1.0-3.2); LYMPHOCYTES % 23.8 % (18.0-39.1); MEAN CORPUSCULAR HEMOGLOBIN 28.5 pg (28-32); MEAN CORPUSCULAR HGB CONC 32.8 g/dL (31-35); MEAN CORPUSCULAR VOLUME 86.8 fL (81-99); MONOCYTES # (AUTO) 0.6 (0.2-0.8); MONOCYTES % 7.8 % (4.4-11.3); NEUTROPHILS # (AUTO) 5.1 (2.1-6.9); NEUTROPHILS % 65.6 % (38.7-80.0); PLATELET COUNT 249 x10e3/uL (140-360); RED BLOOD COUNT 4.18 x10e6/uL (4.3-5.7); RED CELL DISTRIBUTION WIDTH 12.6 % (11.7-14.4)
[2020-08-12 05:27] LABS: ALANINE AMINOTRANSFERASE 25 IU/L (0-55); ALBUMIN 3.4 g/dL (3.5-5.0); ALBUMIN/GLOBULIN RATIO 1.2 (0.8-2.0); ALKALINE PHOSPHATASE 86 IU/L (40-150); ANION GAP 14.6 mmol/L (8-16); BLOOD UREA NITROGEN 8 mg/dL (7-26); BUN/CREATININE RATIO 9 (6-25); CALCIUM 8.6 mg/dL (8.4-10.2); CARBON DIOXIDE 22 mmol/L (22-29); CHLORIDE 105 mmol/L (98-107); CHOL/HDL RATIO 3.7 (3.9-4.7); CHOLESTEROL 145 MD/DL (0-199); CREATININE, SERUM 0.94 mg/dL (0.72-1.25); EST GLOMERULAR FILTRATION RATE > 60 ML/MIN (60-); GLUCOSE 163 mg/dL (74-118); HDL CHOLESTEROL 39 MG/DL (40-60); LDL CHOLESTEROL 83 MG/DL (60-130); POTASSIUM 3.6 mmol/L (3.5-5.1); SODIUM 138 mmol/L (136-145); TRIGLYCERIDES 114 MG/DL (0-149)
[2020-08-12 05:45] LABS: CREATINE KINASE MB 0.4 ng/mL (0-5.0)
--- NOTE | 2020-08-12 05:48 | NUR ---
Patient resting quitly at this time.
--- NOTE | 2020-08-12 07:15 | NUR ---
SBAR BEDSIDE REPORT RECEIVED FROM PM SHIFT RN. PATIENT FOUND LYING IN BED IN NO ACUTE DISTRESS. PATIENT IS AAOX4 AND DENIES ANY FURTHER NEEDS. PATIENT WAS EDUCATED ON FALL RISK PRECAUTIONS AND VERBALIZED UNDERSTANDING. CALL LIGHT AND BELONGINGS PLACED NEARBY. PATIENT AWARE OF HOURLY ROUNDS. I WILL CONTINUE TO MONITOR.
[2020-08-12] MEDS: CITALOPRAM HYDROBROMIDE 20 MG TAB PO SCH (08:44)
[2020-08-12] MEDS: ASPIRIN 81 MG ENTERIC COATED PO SCH (08:44)
[2020-08-12] MEDS: GABAPENTIN 300 MG CAP PO SCH ×2 (08:44→17:58)
[2020-08-12] MEDS: INSULIN LISPRO 100 UNIT/1 ML 3ML VIAL SQ SCH ×4 (08:44→21:00)
[2020-08-12] MEDS: LISINOPRIL 10 MG TAB PO SCH (08:45)
[2020-08-12] MEDS: PANTOPRAZOLE SOD 40 MG TABEC PO SCH (08:45)
[2020-08-12] MEDS: NITROGLYCERIN 0.4 MG SUBL SL PRN ×2 (08:50→17:40)
[2020-08-12] MEDS ORDERED: LISINOPRIL 10 MG TAB PO SCH (09:00)
--- NOTE | 2020-08-12 10:20 | Consultation ---
DATE OF CONSULTATION: 08/12/2020 Cardiology Consultation. CHIEF COMPLAINT: Chest pain. HISTORY OF PRESENT ILLNESS: The patient is a 55-year-old who has been reporting intermittent chest tightness that worse when he gets upset. The patient also reported some tightness in the left arm. The chest tightness was associated with shortness of breath. The patient has had no nausea, no vomiting, and no abdominal pain. PAST MEDICAL HISTORY: Significant for: 1. Peripheral vascular disease. The patient reports having the stenosis in his legs and is scheduled to see a vascular surgeon. 2. The patient reports having had a cardiac catheterization about 4 years ago, which demonstrated minimal coronary artery disease. 3. The patient has a history of diabetes mellitus. 4. The patient has a history of hypertension. MEDICATIONS: At home include: 1. Lisinopril. 2. Lipitor. 3. Paxil. 4. Metformin. 5. Gabapentin. SOCIAL HISTORY: The patient has been a smoker. FAMILY HISTORY: There is a family history of diabetes. PHYSICAL EXAMINATION: GENERAL: The patient is a well-developed, well-nourished male, in no distress. VITAL SIGNS: Included temperature 97.4, blood pressure was 156/76. HEAD, EARS, EYES, NOSE, and THROAT: The patient's cranium was normocephalic and atraumatic. Extraocular muscles were intact. Sclerae were anicteric. Pupils were equal, round, and reactive to light. There is no pallor or cyanosis of the oral mucosa. There is no erythema or edema of the throat. NECK: Supple. No jugular venous distention. No carotid bruits. CHEST: Clear to auscultation and percussion. CARDIAC: Demonstrated normal S1 and S2 with a short 2/6 systolic murmur. ABDOMEN: Demonstrated good bowel sounds. No tenderness and no masses. EXTREMITIES: There was no clubbing, no cyanosis, no edema. NEUROLOGICAL: The patient was alert and oriented x3. Cranial nerves II through XII are intact. Motor strength was +5/+5 in all limbs. IMAGING: The patient's EKG demonstrated normal sinus rhythm with nonspecific ST and T-wave changes. IMPRESSION: The patient is a 55-year-old with presentation concerning for myocardial ischemia. I think that the patient's history suggestive of ischemia to warrant a cardiac catheterization. The cardiac catheterization has been scheduled for Friday the 14 of August and the risks and benefits of the procedure have been discussed with the patient. MD NEGRITA Cerda/RAMSES /[id number] cc: Alexis Esparza MD
--- NOTE | 2020-08-12 11:11 | History and Physical ---
CHIEF COMPLAINT: Possible unstable angina. PRIMARY CARE PHYSICIAN: Dr. Cristóbal Moreau. HOSPICE HOME CARE COORDINATOR: Dr. Ezequiel Merchant. HISTORY OF PRESENT ILLNESS: The patient is a 55-year-old male with atypical chest pain. The patient came to the hospital. Cardiac enzymes negative. The patient is pending for cardiac catheterization on Friday due to his symptoms consistent with coronary artery disease. The patient is otherwise stable. PAST MEDICAL HISTORY: Peripheral vascular disease. The patient has stenosis to his right lower extremity, is scheduled for a vascular surgeon evaluation at a later date. He also has cardiac catheterization approximately 4 years ago with some minimal coronary artery disease, diabetes type 2, and hypertension. HOME MEDICATIONS: Lisinopril, Lipitor, Paxil, metformin, and gabapentin. SOCIAL HISTORY: The patient is a smoker. He is a social drinker. No regular drugs. ALLERGIES: NO KNOWN ALLERGIES. PHYSICAL EXAMINATION: VITAL SIGNS: Temperature is 98, blood pressure 131/82, pulse rate 68, and respirations 20. GENERAL: The patient is not in acute distress. He is awake. HEENT: Normocephalic and atraumatic. He is anicteric. NECK: Supple grossly. PULMONARY: Clear. CARDIOVASCULAR: Regular rate and rhythm. ABDOMEN: Soft. Unremarkable. EXTREMITIES: No cyanosis or edema. NEUROLOGIC: No focal deficit. LABORATORY DATA: WBC is 8.8, hemoglobin 12.6, hematocrit 38.6, and platelets is 296. Chemistry; sodium 138, potassium 3.6, chloride 105, bicarb 22, BUN is 8, creatinine 0.9 and glucose 163. IMPRESSION: Possible unstable angina given the patient's history and atypical chest pain. PLAN: The patient is seen by Dr. Ezequiel Merchant. The patient will have cardiac catheterization planned on Friday. The patient is otherwise stable. We will continue to monitor the patient closely. Resume the patient's home medication. Insulin sliding scale coverage. We will follow up on post cardiac catheterization. MD ANDRIY Mills/MODL /[id number]
[2020-08-12] MEDS: TRAMADOL HCL 50 MG TAB PO PRN (11:15)
[2020-08-12] MEDS: MORPHINE SULFATE 2 MG/ML SYR 1ML IV PRN ×3 (11:43→21:23)
--- NOTE | 2020-08-12 12:27 | NUR ---
Nutrition Screen Note RD Recommendation for Physician: -Rec adding cardiac restriction to ADA diet Plan of Care: RD following, monitoring for tolerance and adequacy Nutrition reason for involvement: MST Primary Diagnose(s): Possible unstable angina PMH: PVD, CAD, DM, HTN Ht: 68in Wt: 216lb BMI: 32.8kg/m2 IBW: 154lb +/- 10% RD Assessment: Chart reviewed. Labs and meds reviewed. 55yo M, who was admitted for chest pain. Visited pt in the room. Pt reports fair appetite without any nausea or vomiting. LBM 10/9. Pt denies any chewing or swallowing difficulty. Pt has attempted to lose weight with lifestyle changes for the last few weeks. UBW ~239lb. Encouraged weight loss with healthy meal choice and increased physical activity whenever possible. Current Diet: ADA 1800 Malnutrition Evaluation The patient does not meet criteria for a specified degree of malnutrition at this time. Will re-evaluate at follow-up as appropriate. Diet Education Needs Assessment: Diet education not indicated. Nutrition Care Level: low Signed: Marcy Pantoja, MS, RD, LD
--- NOTE | 2020-08-12 19:20 | NUR ---
Patient received lying in bed. AAO x 4. Patient had no complaints of pain. Respirations even and non-labored. Safety measures implemented. Patient instructed to call for assistance when needed. Call light within reach.
[2020-08-12] MEDS: TRAZODONE HCL 50 MG TAB PO SCH (21:17)
[2020-08-12] MEDS: ATORVASTATIN 40 MG TAB PO SCH (21:17)
[2020-08-13] VITALS (7 sets, daily range): BP systolic 114–143; BP diastolic 71–91
[2020-08-13] MEDS: INSULIN LISPRO 100 UNIT/1 ML 3ML VIAL SQ SCH ×3 (07:35→16:13)
[2020-08-13] MEDS: LISINOPRIL 10 MG TAB PO SCH (08:36)
[2020-08-13] MEDS: CITALOPRAM HYDROBROMIDE 20 MG TAB PO SCH (08:36)
[2020-08-13] MEDS: ASPIRIN 81 MG ENTERIC COATED PO SCH (08:36)
[2020-08-13] MEDS: GABAPENTIN 300 MG CAP PO SCH ×2 (08:36→16:40)
[2020-08-13] MEDS: PANTOPRAZOLE SOD 40 MG TABEC PO SCH (08:36)
[2020-08-13] MEDS: MORPHINE SULFATE 2 MG/ML SYR 1ML IV PRN ×3 (11:15→21:31)
[2020-08-13] MEDS: NITROGLYCERIN 0.4 MG SUBL SL PRN (11:15)
--- NOTE | 2020-08-13 19:28 | NUR ---
Patient received sitting up in bed. AAO x 4. No acute distrss noted. Call light within reach.
[2020-08-13] MEDS: TRAZODONE HCL 50 MG TAB PO SCH (21:30)
[2020-08-13] MEDS: ATORVASTATIN 40 MG TAB PO SCH (21:31)
--- NOTE | 2020-08-13 21:50 | NUR ---
Patient informed of upcoming surgical procedure (Left/right heart catheterization) and NPO status after midnight. Patient verbalized understanding and voluntarily signed the Disclosure and Consent form.
[2020-08-14] VITALS (17 sets, daily range): BP systolic 109–156; BP diastolic 68–90
[2020-08-14] MEDS: INSULIN LISPRO 100 UNIT/1 ML 3ML VIAL SQ SCH ×5 (01:06→21:00)
--- NOTE | 2020-08-14 06:51 | NUR ---
SBAR BEDSIDE REPORT RECEIVED FROM PM SHIFT RN. PATIENT FOUND LYING IN BED IN NO ACUTE DISTRESS. PATIENT AAOX4 AND ABLE TO VOICE NEEDS. PT DENIES ANY FURTHER NEEDS. PATIENT WAS EDUCATED ON FALL RISK PRECAUTIONS AND VERBALIZED UNDERSTANDING. CALL LIGHT AND BELONGINGS PLACED NEARBY. WILL CONTINUE TO MONITOR.
[2020-08-14] MEDS: PANTOPRAZOLE SOD 40 MG TABEC PO SCH (09:00)
[2020-08-14] MEDS: GABAPENTIN 300 MG CAP PO SCH ×2 (09:00→16:36)
[2020-08-14] MEDS: LISINOPRIL 10 MG TAB PO SCH ×2 (09:00→09:39)
[2020-08-14] MEDS: CITALOPRAM HYDROBROMIDE 20 MG TAB PO SCH (09:00)
[2020-08-14] MEDS: ASPIRIN 81 MG ENTERIC COATED PO SCH ×2 (09:00→09:39)
[2020-08-14] MEDS ORDERED: TICAGRELOR 90 MG TABLET PO ONE (10:15)
[2020-08-14] MEDS ORDERED: VERAPAMIL HCL 2.5 MG/ML 2 ML VIAL ONE (14:04)
[2020-08-14] MEDS ORDERED: LIDOCAINE HCL 2% LOCAL 20 ML VIAL ONE (14:04)
[2020-08-14] MEDS ORDERED: HEPARIN SOD (PORCINE) 1000 UNIT/ML 30ML ONE (14:04)
[2020-08-14] MEDS ORDERED: HEPARIN SOD/SOD CHLORIDE 2,000 ML ONE (14:04)
[2020-08-14] MEDS ORDERED: IOPAMIDOL 370 MG/ML 200 ML INFUS..BTL INJ ONE (14:04)
[2020-08-14] MEDS ORDERED: SODIUM CHLORIDE 0.9% 1000ML 1,000 ML ONE (14:05)
--- NOTE | 2020-08-14 16:48 | NUR ---
PATIENT OFF THE FLOOR FOR HEART CATH
[2020-08-14] MEDS ORDERED: FENTANYL CITRATE/PF 100MCG/2 ML INJ ONE (17:15)
[2020-08-14] MEDS ORDERED: MIDAZOLAM HCL 2 MG/2 ML VIAL ONE (17:15)
--- NOTE | 2020-08-14 17:45 | NUR ---
Dr Waterman at bedside discussing POC with patient as well as findings of procedure.
--- NOTE | 2020-08-14 19:27 | NUR ---
Coronary angiography left heart catheterization procedure note Location: [facility] Catheter[facility] Lab Date of service: August 22, 2020 Attending physician: Rigo Waterman MD Pre-operative diagnosis: 1. Unstable angina 2. Hypertension 3. Hyperlipidemia 4. Type 2 diabetes mellitus Post-operative diagnosis: Same as above in addition to: -Mild nonobstructive coronary disease Procedure: 1. Right radial access 2. Left heart catheterization 3. Selective coronary angiography Catheters: 5 Slovak Delia 4.0 Findings: Coronary Anatomy: -Left main: Angiographically normal with mild luminal irregularities -LAD: Angiographically normal with mild luminal irregularities -Left circumflex: This is a dominant vessel large angiographically normal with mild luminal irregularities -Right coronary artery: Small nondominant angiographically normal Hemodynamics: Ao pressure: 139/94 mmHg LVEDP: 15 mmHg No gradient upon pullback from the LV to AO Procedure details: After patient identification informed consent and preprocedural timeout. Conscious moderate sedation was ordered and monitored by me. The right radial artery site was draped and prepped in the usual sterile fashion. Local anesthes ia with 1% lidocaine was used to anesthetize the right radial artery access site . Using Seldinger technique a 5/6 Slovak slender sheath was introduced over the wire into the right radial artery without difficulty. A cocktail of verapamil and nitroglycerin was given IA as above. A 5 Slovak Delia 4.0 catheter was introduced through the sheath to the ascending aorta over the wire without difficulty. IV heparin 5000 IU was given. The left main coronary artery was selectively engaged and cine images obtained. The catheter was then repositioned to selectively engage the RCA and cine images obtained. The catheter was introduced into the LV across the aortic valve over a J-wire and an LVEDP was directly measured. All catheters and wires were removed. The radial sheath was removed and a TR band was applied with excellent hemostasis to be removed later in the recovery. The patient tolerated the procedure very well without complications and was transferred to post-cath unit for observation. Please refer to the radiation tech and nurses notes for further details. Total contrast used: 50 Isovue Air Kerma: 494 mGy Fluoroscopy time: 6:34 Complications: None Blood loss: Less than 10 cc Disposition: PACU Assessment: -Mild nonobstructive coronary disease -Normal aortic pressure -Borderline elevated LVEDP LVEDP Plan: -Routine post-cath care and observation -TR band removal in 1 hr per protocol -Monitor overnight in the telemetry bed -Aggressive risk factor modication -Family was updated with the details and the results of the procedure. All questions and concerns were addressed. Rigo Waterman MD Attending [employer] Skates Assembl[employer] [facility] Cardiology
--- NOTE | 2020-08-14 19:45 | NUR ---
TR band removed and clean dressing applied. + neurovascular function present. VS wnl, no acute distress. pt maintains intermittent chest pain w/o other symptom.
--- NOTE | 2020-08-14 20:00 | NUR ---
Pt meets transfer criteria. VS wnl, alert and oriented. Pt understands radial precautions/ instruction. Overall general assess w/o gross outliers. Skin warm, dry, and intact. Right radial dressing soft w/o s/s of hematoma. + neurovascular function of right hand present. Pt maintains mask on for COVID 19 precautions being taken by bed on telemetry back to private room.-cgf
[2020-08-14] MEDS: MORPHINE SULFATE 2 MG/ML SYR 1ML IV PRN (20:25)
[2020-08-14] MEDS: ATORVASTATIN 40 MG TAB PO SCH (22:22)
[2020-08-14] MEDS: TRAZODONE HCL 50 MG TAB PO SCH (22:22)
[2020-08-15] VITALS: BP 107/65
[2020-08-15 04:00] VITALS: BP 144/73
[2020-08-15] MEDS: MORPHINE SULFATE 2 MG/ML SYR 1ML IV PRN (06:32)
--- NOTE | 2020-08-15 07:00 | NUR ---
Patient resting comfortably. No acute distress noted. Walking rounds done. Shift report given to oncoming nurse.
--- NOTE | 2020-08-15 07:01 | NUR ---
SBAR BEDSIDE REPORT RECEIVED FROM PM SHIFT RN. PATIENT FOUND LYING IN BED IN NO ACUTE DISTRESS. PATIENT AAOX4 AND ABLE TO MAKE NEEDS KNOWN. PATIENT DENIES CHEST PAIN AND ANY FURTHER NEEDS. PATIENT WAS EDUCATED ON FALL RISK PRECAUTIONS AND VERBALIZED UNDERSTANDING. CALL LIGHT AND BELONGINGS PLACED NEARBY. WILL CONTINUE TO MONITOR.
[2020-08-15 09:00] VITALS: BP 136/81
[2020-08-15] MEDS: CITALOPRAM HYDROBROMIDE 20 MG TAB PO SCH (09:04)
[2020-08-15] MEDS: GABAPENTIN 300 MG CAP PO SCH (09:04)
[2020-08-15] MEDS: PANTOPRAZOLE SOD 40 MG TABEC PO SCH (09:04)
[2020-08-15] MEDS: INSULIN LISPRO 100 UNIT/1 ML 3ML VIAL SQ SCH (09:06)
--- NOTE | 2020-08-15 09:10 | NUR ---
Pt. expressed no spiritual or emotional concerns at this time. Finishing Technician provided hospitality and information on how to reach automotive center manager, if needed. IVELISSE GAR Finishing Technician Spiritual Care Department O: [phone]
--- NOTE | 2020-08-15 10:55 | NUR ---
PATIENT DISCHARGED HOME VIA PRIVATE VEHICLE. PERIPHERAL IV WAS DISCONTINUED; CATHETER TIP INTACT WITHOUT RESISTANCE. DRY DRESSING APPLIED. PATIENT RECEIVED DISCHARGE INSTRUCTIONS AND EDUCATION MATERIAL. PATIENT VERBALIZED UNDERSTANDING. TELEMETRY BOX REMOVED,CLEANED, AND RETURNED TO MONITOR ROOM.
--- NOTE | 2020-08-15 11:29 | Discharge Summary ---
PRIMARY CARE PHYSICIAN: Cristóbal Moreau MD CONSULTING PHYSICIAN: Ezequiel Merchant MD FINAL DIAGNOSIS: Chest pain, status post left heart catheterization. No PCI. Mild coronary artery disease. HISTORY OF PRESENT ILLNESS: A 55-year-old male with multiple chronic medical problems and high risk for coronary disease, came in with chest pain. The patient also has peripheral vascular disease, pending intervention. The patient, because he came in on Friday and then on Friday and Friday, the patient was unable to get cardiac catheterization. Therefore, he waited for Friday, cardiac catheterization that was late and then subsequently, now, the patient will be discharged home. There was no intervention. The patient is otherwise stable. He will go home today. He will follow up with Dr. Ezequiel Merchant and Dr. Cristóbal Moreau for outpatient followup. All instructions given. The patient will resume his home medication. The patient is stable, discharged home today. MD ANDRIY Mills/RAMSES /[id number]
== END 2020-08-15 10:55 | disposition home or self-care (01) | DRG 287 ==
LOC: ER 12:50 → ERHOLD 13:53 → MED/SURG2 15:17 → OBSVTOIN 08-12 10:52 → MED/SURG2 08-13 15:59
PROVIDERS: ADMIT Internal Medicine; ATTEND Internal Medicine
PROC: 4A023N7 Measurement of Cardiac Sampling and Pressure, Left Heart, Percutaneous Approach (ICD-10-PCS; principal; 2020-08-12)
PROC: B2111ZZ Fluoroscopy of Multiple Coronary Arteries using Low Osmolar Contrast (ICD-10-PCS; 2020-08-12)
PROC: B2151ZZ Fluoroscopy of Left Heart using Low Osmolar Contrast (ICD-10-PCS; 2020-08-12)
DX: I25.10 Atherosclerotic heart disease of native coronary artery without angina pectoris (principal); I10 Essential (primary) hypertension; E78.5 Hyperlipidemia, unspecified; E11.51 Type 2 diabetes mellitus with diabetic peripheral angiopathy without gangrene; Z79.899 Other long term (current) drug therapy; Z11.59 Encounter for screening for other viral diseases
CPT/HCPCS: 36415; 71045; 80053; 80061; 82550; 82553; 82948; 83735; 83880; 84484; 85025; 85610; 85730; 93005; 93306; 93458; 93880; 99152; 99284; C1887; G0378; J1644; J2001; J2250; J2270; J2405; J3010; J7030; Q9967

== ENCOUNTER 2020-09-28 07:49 | Emergency (ER) | payer MEDICARE ==
[~2020-09-28] VITALS: Ht 172.7 cm; Wt 98.0 kg
[~2020-09-28 07:49] MED LIST changes: +CITALOPRAM HBR20 MG PO; +FLUTICASONE; +TRAZODONE HCL50 MG PO
[2020-09-28] MEDS ORDERED: SODIUM CHLORIDE 0.9% 1000ML 1,000 ML IV STA (08:07)
[2020-09-28 08:16] LABS: BASOPHILS % 0.2 % (0.0-1.0); EOSINOPHILS # (AUTO) 0.2 (0.0-0.4); EOSINOPHILS % 2.6 % (0.0-6.0); HEMATOCRIT 38.8 % (38.2-49.6); HEMOGLOBIN 12.6 g/dL (14.0-18.0); LYMPHOCYTES # (AUTO) 1.6 (1.0-3.2); LYMPHOCYTES % 18.2 % (18.0-39.1); MEAN CORPUSCULAR HEMOGLOBIN 28.1 pg (28-32); MEAN CORPUSCULAR HGB CONC 32.5 g/dL (31-35); MEAN CORPUSCULAR VOLUME 86.4 fL (81-99); MONOCYTES # (AUTO) 0.7 (0.2-0.8); MONOCYTES % 8.5 % (4.4-11.3); NEUTROPHILS % 70.1 % (38.7-80.0); PLATELET COUNT 241 x10e3/uL (140-360); RED BLOOD COUNT 4.49 x10e6/uL (4.3-5.7); RED CELL DISTRIBUTION WIDTH 12.8 % (11.7-14.4)
[2020-09-28 08:52] LABS: ALANINE AMINOTRANSFERASE 17 IU/L (0-55); ALKALINE PHOSPHATASE 132 IU/L (40-150); ANION GAP 13.8 mmol/L (8-16); BLOOD UREA NITROGEN 14 mg/dL (7-26); BUN/CREATININE RATIO 15 (6-25); CALCIUM 8.6 mg/dL (8.4-10.2); CARBON DIOXIDE 23 mmol/L (22-29); CHLORIDE 107 mmol/L (98-107); CREATININE, SERUM 0.92 mg/dL (0.72-1.25); EST GLOMERULAR FILTRATION RATE > 60 ML/MIN (60-); GLUCOSE 152 mg/dL (74-118); POTASSIUM 3.8 mmol/L (3.5-5.1); SODIUM 140 mmol/L (136-145)
[2020-09-28 08:58] LABS: ALBUMIN 3.6 g/dL (3.5-5.0); ALBUMIN/GLOBULIN RATIO 1.2 (0.8-2.0)
[2020-09-28 09:05] LABS: BILIRUBIN,URINE NEGATIVE (NEGATIVE); CLARITY,URINE CLEAR (CLEAR); COLOR,URINE YELLOW (YELLOW); KETONES,URINE NEGATIVE (NEGATIVE); LEUKOCYTE ESTERASE ,URINE NEGATIVE (NEGATIVE); NITRITE,URINE NEGATIVE (NEGATIVE); PROTEIN,URINE DIPSTICK NEGATIVE (NEGATIVE); URINE UROBILINOGEN 0.2 mg/dL (0.2 - 1)
[2020-09-28] MEDS ORDERED: ZOFRAN4 MG PO (09:08)
[2020-09-28 09:15] VITALS: BP 130/74
[2020-09-28 09:18] LABS: BACTERIA,URINE MODERATE /HPF; EPITHELIAL CELLS,URINE RARE /LPF; RBC,URINE 0-5 /HPF (0-5); WBC,URINE (MAN) 0-5 /HPF (0-5)
[2020-09-28 09:19] LABS: MUCUS,URINE FEW (RARE)
[2020-09-28 09:50] LABS: LIPASE 15 U/L (8-78)
== END 2020-09-28 09:58 | disposition home or self-care (01) ==
LOC: ER 08:14
DX: R10.9 Unspecified abdominal pain (principal); R11.0 Nausea; I10 Essential (primary) hypertension; E11.65 Type 2 diabetes mellitus with hyperglycemia; E11.40 Type 2 diabetes mellitus with diabetic neuropathy, unspecified; E78.5 Hyperlipidemia, unspecified; K21.9 Gastro-esophageal reflux disease without esophagitis; F41.9 Anxiety disorder, unspecified; F32.9 Major depressive disorder, single episode, unspecified
CPT/HCPCS: 36415; 71045; 80053; 81001; 83690; 84484; 85025; 99284; J7030